=== PATIENT | female | born 1975 | race Asian ===

== ENCOUNTER → 2016-10-28 | Outpatient (CLI) | payer BC ==
[~2016-10-28] MED LIST: ETONMIS VAGRING
[2016-10-28 09:49] LABS: BLOOD UREA NITROGEN 19 mg/dl (7-18); BUN/CREATININE RATIO 18.8 (10-20); CALCIUM 9.4 mg/dl (8.5-10.1); CARBON DIOXIDE 25 mmol/L (21-32); CHLORIDE 105 mmol/L (98-107); GLUCOSE 89 mg/dl (70-99); MAGNESIUM 2.1 mg/dl (1.8-2.4); POTASSIUM 3.8 mmol/L (3.5-5.1); SODIUM 138 mmol/L (136-145); TRIGLYCERIDES 98 mg/dl (0-150)
== END | disposition home or self-care (01) ==
LOC: C.LAB1850 07:39
PROVIDERS: ATTEND Internal Medicine
DX: E78.2 Mixed hyperlipidemia (principal); R25.2 Cramp and spasm

== ENCOUNTER 2016-12-08 13:14 | Inpatient (IN) | payer BC ==
[~2016-12-08] VITALS: Ht 162.6 cm; Wt 56.1 kg
[~2016-12-08 13:14] MED LIST changes: -OPTIRAY 320 IV PRN; -XRL15 PO
--- NOTE | 2016-12-08 14:04 | EMERGENCY ROOM VISIT NOTE ---
History Report prepared by Sobia: [facility] Under the Supervision of: Dr. Bobo Perez M.D. First contact with patient: 13:25 Chief Complaint: RESPIRATORY PROBLEMS Stated Complaint: PULMONARY EMBOLISM History of Present Illness The patient is a 41 year old female who presents to the Emergency Room with complaints of constant chest tightness starting this morning around 0200 this morning. She states that she woke with a sharp pain on the right side worsened with breathing, and now it is just a tightness. She states that this morning it was better, though she went to get a CT scan this morning, and she was diagnosed with a PE. She states that she has no other medical problems, and she has no history of blood clots. She denies any abdominal pain, back pain, pain in her calves, recent long travels, and she is not a smoker. The patient states that she ran a marathon three weeks ago, and her running has been very difficult for the past two days. She states that she is on Nuva Ring. The patient denies any trauma or bleeding elsewhere. She states that she does travel for work a lot, and she is adopted, so she is unsure of her family history. Source of History: patient Onset: 0200 Position: chest Quality: other (tightness) Timing: constant Modifying Factors (Worsening): breathing Associated Symptoms: No abdominal pain, No back pain Review of Systems See HPI for pertinent positives & negatives. A total of 10 systems reviewed and were otherwise negative. Past Medical & Surgical Medical Problems: (1) Acute pulmonary embolism Old medical records were reviewed. Nurse's notes were reviewed and I agree with. Social History Smoking Status: Never Smoker Drug Use: none Marital Status: Housing Status: lives with family Occupation Status: employed Current/Historical Medications Scheduled Etonogestrel/Ethinyl Estradiol (Nuvaring), 1 EA VAGRING MONTHLY Allergies Coded Allergies: Penicillins (Unverified Allergy, Mild, 12/08/16) Amoxicillin (Unverified Allergy, Unknown, ., 12/08/16) Sulfa Drugs (Verified Allergy, Unknown, /, 12/08/16) Physical Exam Vital Signs Date Time Temp Pulse Resp B/P (MAP) Pulse Ox O2 Delivery O2 Flow Rate FiO2 12/08/16 14:01 100 Room Air 12/08/16 13:20 36.6 104 148/84 96 Room Air Physical Exam General: Non-ill appearing young female in no acute distress. HEENT: Normal cephalic atraumatic. Pupils are equal round and reactive to light. Extraocular movements are intact. Oropharynx is pink with moist mucous membranes. No swelling of the mouth lips or tongue. Neck: Supple with a midline trachea. No meningeal signs or stiffness, no JVD or bruits. No Stridor. Chest: Clear to auscultation bilaterally. No wheezes or rhonchi. No increased work of breathing. Heart: regular rate and rhythm. Abdomen: Soft nontender, nondistended without rebound guarding or rigidity. Extremities: No cyanosis clubbing or edema. No calf tenderness or assymetry Spine/Back. Non tender to palpation. No CVA tenderness Skin: Good turgor without rashes. Neurologic exam: Cranial nerves two through 12 are intact. Motor and sensation are intact and symmetrical throughout. Medical Decision & Procedures ER Provider Diagnostic Interpretation: Radiology results as stated below per my review and radiologist interpretation: CT ANGIOGRAM OF THE CHEST CLINICAL HISTORY: Dyspnea. Atypical chest pain. COMPARISON STUDY: No priors. TECHNIQUE: Following the IV administration of 104 cc of Optiray 320, CT angiogram of the chest was performed from the upper abdomen to the thoracic inlet utilizing the pulmonary embolus protocol. Images are reviewed in the axial, sagittal, and coronal planes. 3-D MIPS images are created and assessed. IV contrast was administered without complication. A dose lowering technique was utilized adhering to the principles of ALARA. CT DOSE: 298.83 mGycm FINDINGS: Thyroid: Imaged portions of the thyroid gland are normal in size and attenuation. Thoracic aorta: The thoracic aorta is normal in caliber and demonstrates standard 3-vessel arch anatomy. No dissection is seen. Pulmonary vasculature: The pulmonary trunk is normal in caliber. There are numerous segmental and subsegmental pulmonary emboli present within branches of the right lower lobe pulmonary artery. Subsegmental pulmonary emboli are seen within branches of the left lower lobe pulmonary artery. Heart: The heart is normal in size and configuration, and without pericardial effusion. Lungs and pleural spaces: There is a trace right pleural effusion. There are dependent patchy airspace opacities present at both lung bases, right greater than left. The upper lobes are clear. The trachea and central airways are patent. Mediastinum: There is no mediastinal lymphadenopathy. Adilene: Clear. Axillae: There is no axillary lymphadenopathy. Upper abdomen: A 3 cm bilobed cyst is present in the right lobe of the liver. Partially visualized upper abdominal viscera is otherwise within normal limits. Skeletal structures: No lytic or blastic bony lesions are seen. IMPRESSION: 1. There are segmental and subsegmental pulmonary emboli within branches of the right lower lobe pulmonary artery. 2. Subsegmental pulmonary emboli are present within branches of the left lower lobe pulmonary artery. 3. There is a trace right pleural effusion. 4. Dependent airspace opacities are present at both lung bases, right greater than left. Given the presence of pulmonary embolus this likely represents developing pulmonary infarct. An infectious/inflammatory pneumonitis is considered less likely but is the top differential consideration. Electronically signed by: Samson Condon M.D. 12/08/2016 12:52 PM Dictated Date/Time: 12/08/2016 12:46 PM Laboratory Results Test 12/08/16 13:35 12/08/16 14:07 Prothrombin Time 9.4 SECONDS (9.0-12.0) Prothromb Time International Ratio 0.9 (0.9-1.1) Activated Partial Thromboplast Time 29.9 SECONDS (21.0-31.0) Partial Thromboplastin Ratio 1.2 Human Chorionic Gonadotropin, Qual NEG (NEG) Bedside Troponin I < 0.030 ng/ml (0-0.045) Laboratory studies as stated above per my review. ECG Indication: chest pain Rate (beats per minute): 67 Rhythm: normal sinus Findings: RBBB (incomplete), no acute ischemic change Comparison ECG Date: 05/11/09 Change: no significant change Change: EKG compared to the one during the office: Julianna sinus rhythm at 60bpm. Short [place] intervals. No ischemia. No significant change from the office prior to arrival. ED Course 1325: Past medical records reviewed. The patient was evaluated in room C1, and a complete history and physical examination were performed. 1337: Discussed the patient's case with Dr. Atilio SOLOMON. The patient will be evaluated for further management. 1339: Heparin Sodium/ Dextrose 1ea IV Medical Decision Differentials include, but are not limited to; PE, pulmonary infarct, infection , arrhythmia This patient comes in as described above. She was placed in room C1. She is here for treatment and evaluation of right-sided chest pain. She seen her primary doctor's office. SSvika was sent over and had an outpatient CAT scan which showed bilateral PEs. Upon arrival in the emergency department s,, so I he was placed as a priority patient says saw her quickly. When I went in the room, she has stable vital signs and she's not hypoxemic and looks well. She seems to be tolerating this well so far. I did review the EKGs from the office and she has no ischemic change and we repeated an EKG here which was unremarkable as well. Blood work was obtained and reviewed the blood work from the office as well. I do think she needs to be admitted for anticoagulation and anticoagulation/PE workup. I have consulted Dr. Trimble, who the would like the IV heparin standard bolus and protocol which I did order and at this was started in the emergency department. The patient will be admitted for further treatment and evaluation of her pulmonary embolisms Medication Reconcilliation Current Medication List: was personally reviewed by me Blood Pressure Screening Patient's blood pressure: Elevated blood pressure Monitored by the hospitalist Consults Time Called: [phone] Consulting Physician: NEHA Perez Returned Call: [phone] Discussed the patient's case with NEHA Bajwa. The patient will be evaluated for further management. Impression Primary Impression: Pulmonary embolism Additional Impression: Right-sided chest pain Scribe Attestation The scribe's documentation has been prepared under my direction and personally reviewed by me in its entirety. I confirm that the note above accurately reflects all work, treatment, procedures, and medical decision making performed by me. Departure Information Dispostion Being Evaluated By Hospitalist Referrals No Doctor, Assigned (PCP) Patient Instructions My [facility] Problem Qualifiers
[2016-12-08 14:18] LABS: INR 0.9 (0.9-1.1); PARTIAL THROMBOPLASTIN RATIO 1.2; PROTHROMBIN TIME (PATIENT) 9.4 SECONDS (9.0-12.0)
[2016-12-08 14:29] LABS: PREG INTERNAL NEGATIVE QC NEG CLEAR BACKGROUND; PREG INTERNAL POSITIVE QC POS CONTROL LINE
[2016-12-08] MEDS ORDERED: ACETAMINOPHEN 325 MG TAB PO PRN (14:30)
[2016-12-08] MEDS ORDERED: MoRPHine SULFATE 2 MG/ML CARP IV PRN (14:30)
[2016-12-08] MEDS ORDERED: ZOLPIDEM TARTRATE 5 MG TAB PO PRN (14:30)
[2016-12-08] MEDS ORDERED: POLYETHYLENE (MIRALAX) 17 GM PACK PO PRN (14:30)
[2016-12-08] MEDS ORDERED: HEPARIN IV BOLUS 4,000 UNIT in SYRINGE 0 ML IV ONE (14:45)
--- NOTE | 2016-12-08 15:10 | History and Physical ---
History & Physical Date & Time of Service: Dec 08, 2016 at 14:41 Chief Complaint: Pulmonary Embolism Primary Care Physician: Martín Allen M.D. History of Present Illness Source: patient, clinic records, hospital records This patient is a 41-year-old female with no significant past medical history who presented to her PCPs office today with sudden onset of right-sided chest pain of a pleuritic nature with some shortness of breath that started abruptly at 2:30 this morning at home. She was sent for a CT angiogram of the chest after having an evaluation and an EKG in the office. Her CT angiogram of the chest showed multiple bilateral pulmonary emboli and she was referred to the emergency room. The patient reports she has been on NuvaRing for control for over 10 years, and frequently travels by airplane for work, most recently was in [place] last week. 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 She denies any preceding calf, leg, or groin pain, no abdominal pain, no leg swelling, no previous chest pain. She has no history of venous thromboembolism , and she has never been . She is adopted and is not aware of any of her family history. She does have a history of abnormal Pap smear with LGSIL which has since resolved on subsequent Pap smears. She has never had a mammogram and denies any breast masses. She denies any recent surgeries or procedures. She has no history of intracranial hemorrhage, GI bleeding, or bleeding of any sort. She denies any recent fevers, no weight loss, no swollen lymph nodes, no fatigue. She will be admitted for bilateral pulmonary emboli with possible developing pulmonary infarct in the right lower lobe. 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) Multi-Drug Resistant Organisms History of MDRO: No Allergies Coded Allergies: Penicillins (Unverified Allergy, Mild, 12/08/16) Amoxicillin (Unverified Allergy, Unknown, ., 12/08/16) Sulfa Drugs (Verified Allergy, Unknown, /, 12/08/16) Home Medications Scheduled Etonogestrel/Ethinyl Estradiol (Nuvaring), 1 EA VAGRING MONTHLY Review of Systems Constitutional: No fever, No chills, No sweats, No weight loss Eyes: No problem reported ENT: No problem reported Respiratory: + shortness of breath Cardiovascular: + chest pain (pleuritic), No edema Abdomen: No pain, No nausea, No vomiting, No GI bleeding Musculoskeletal: No joint pain, No muscle pain, No swelling, No calf pain Genitourinary - Female: No , No problem reported Neurologic: No problem reported Psychiatric: No problem reported Endocrine: No problem reported Hematologic / Lymphatic: No abnormal bleeding/bruising, No clotting problems, No swollen lymph nodes, No night sweats Integumentary: No rash, No new/changing skin lesions, No bleeding Allergic / Immunologic: No problem reported Physical Exam Vital Signs Date Time Temp Pulse Resp B/P (MAP) Pulse Ox O2 Delivery O2 Flow Rate FiO2 12/08/16 14:01 100 Room Air 12/08/16 13:20 36.6 104 148/84 96 Room Air General Appearance: WD/WN, no apparent distress, + thin Head: normocephalic, atraumatic Eyes: normal inspection, PERRL, EOMI, sclerae normal ENT: hearing grossly normal, pharynx normal Neck: supple, no adenopathy, thyroid normal, no JVD, trachea midline Respiratory/Chest: lungs clear, normal breath sounds, no respiratory distress, no accessory muscle use Cardiovascular: regular rate, rhythm, no edema, no gallop, no murmur, normal peripheral pulses (including 2+ femoral pulses, 2+ dorsalis pedis pulses bilaterally) Abdomen/GI: normal bowel sounds, non tender, soft, no organomegaly, no pulsatile mass Back: normal inspection Extremities/Musculoskelatal: normal inspection, no calf tenderness, normal capillary refill, no pedal edema, normal range of motion Neurologic/Psych: no motor/sensory deficits, alert, normal mood/affect, oriented x 3 Skin: normal color, warm/dry, no rash Lymphatic: no adenopathy (no cervical, axillary, inguinal lymphadenopathy) Diagnostics Laboratory Results Results Past 24 Hours Test 12/08/16 13:35 12/08/16 14:07 12/08/16 14:12 Range/Units Prothrombin Time 9.4 9.0-12.0 SECONDS Prothromb Time International Ratio 0.9 0.9-1.1 Activated Partial Thromboplast Time 29.9 21.0-31.0 SECONDS Partial Thromboplastin Ratio 1.2 Human Chorionic Gonadotropin, Qual NEG NEG Bedside Troponin I < 0.030 0-0.045 ng/ml Diagnostic Radiology CT angiogram of the chest reviewed: 1. There are segmental and subsegmental pulmonary emboli within branches of the right lower lobe pulmonary artery. 2. Subsegmental pulmonary emboli are present within branches of the left lower lobe pulmonary artery. 3. There is a trace right pleural effusion. 4. Dependent airspace opacities are present at both lung bases, right greater than left. Given the presence of pulmonary embolus this likely represents developing pulmonary infarct. An infectious/inflammatory pneumonitis is considered less likely but is the top differential consideration. EKG EKG from the office reviewed and shows an incomplete right bundle branch block, no ischemic changes No change from prior EKG (from 2009) Impression Assessment and Plan This patient is a 41-year-old female with no significant past medical history who presented to her PCPs office today with sudden onset of right-sided chest pain of a pleuritic nature with some shortness of breath that started abruptly at 2:30 this morning at home. She was sent for a CT angiogram of the chest after having an evaluation and an EKG in the office. Her CT angiogram of the chest showed multiple bilateral pulmonary emboli and she was referred to the emergency room. The patient reports she has been on NuvaRing for control for over 10 years, and frequently travels by airplane for work, most recently was in [place] last week. 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 She denies any preceding calf, leg, or groin pain, no abdominal pain, no leg swelling, no previous chest pain. She has no history of venous thromboembolism , and she has never been . She is adopted and is not aware of any of her family history. She does have a history of abnormal Pap smear with LGSIL which has since resolved on subsequent Pap smears. She has never had a mammogram and denies any breast masses. She denies any recent surgeries or procedures. She has no history of intracranial hemorrhage, GI bleeding, or bleeding of any sort. She denies any recent fevers, no weight loss, no swollen lymph nodes, no fatigue. She will be admitted for bilateral pulmonary emboli with possible developing pulmonary infarct in the right lower lobe. Acute bilateral pulmonary emboli/developing pulmonary infarct-could be considered provoked by use of hormonal contraception plus recent and frequent travel. However, she is quite active as a marathon runner. No family history is known to see if she is at risk for hypercoagulable disorder. No obvious signs of underlying malignancy. She is hemodynamically stable, she is not significantly hypoxic, there is no indication for evaluation for thrombolytic therapy. -Admit to telemetry -Check echocardiogram -I believe this warrants a hypercoagulable workup and those labs were drawn today prior to initiation of her heparin drip-these studies will need follow-up as an outpatient -May need outpatient workup for underlying malignancy as a cause as well-would need a mammogram, clinical breast exam, and possible pelvic ultrasound to look at the ovaries -Start heparin drip now and continue until long-term anticoagulation commences- patient is interested in NOAC like Xarelto-we'll have case management yu it out for her -She will need likely 6 months of anticoagulation -I advised the patient to pull out her NuvaRing and permanently discontinue it -Check Dopplers of the bilateral lower extremities Hypertriglyceridemia-most recent lipid panel was excellent -Continue omega-3 supplementation Prophylaxis-heparin drip Disposition-to home in 1-2 days Full code Level of Care Telemetry Resuscitation Status FULL RESUSCITATION VTE Prophylaxis VTE Risk Assessment Done? Y/N: Yes Risk Level: High Given or contraindicated: Unfractionated heparin SQ Additional Copies To Martín Allen M.D.
[2016-12-08 16:45] VITALS: BP 118/76; PULSE 75; TEMP 36.8; O2SAT 98
[2016-12-08 17:20] VITALS: BP 118/76; PULSE 75; TEMP 36.8; O2SAT 98; Ht 162.6 cm; Wt 56.1 kg
[2016-12-08] MEDS: HEPARIN 25,000 UNIT/500ML D5W 500 ML IV PRN ×2 (17:22→23:57)
[2016-12-08 17:49] LABS: BASO % 0.2 %; BASO ABS # 0.02 K/uL (0-0.2); EOS % 0.9 %; HEMATOCRIT 39.9 % (37-47); IG% 0.2 %; LYMPH % 22.7 %; LYMPH ABS # 2.06 K/uL (1.2-3.4); MEAN CELL VOLUME 93.2 fL (80-100); MEAN PLATELET VOLUME 9.3 fL (7.4-10.4); MONO % 8.1 %; NEUT % 67.9 %; PLATELET COUNT 183 K/uL (130-400); RED BLOOD COUNT 4.28 M/uL (4.2-5.4); WHITE BLOOD COUNT 9.09 K/uL (4.8-10.8)
[2016-12-08 17:51] LABS: COMPLETE YES; MEAN CORPUSCULAR HGB CONC 34.3 g/dl (32-36)
[2016-12-08 19:20] VITALS: BP 119/77; PULSE 94; TEMP 36.9; O2SAT 92
[2016-12-08 20:00] VITALS: O2SAT 92
[2016-12-08 23:16] VITALS: BP 116/72; PULSE 78; TEMP 37; O2SAT 98
[2016-12-08 23:48] LABS: PARTIAL THROMBOPLASTIN RATIO 2.4
[2016-12-09] VITALS: O2SAT 92
[2016-12-09 04:00] VITALS: O2SAT 92
[2016-12-09 04:31] VITALS: BP 107/70; PULSE 72; TEMP 37.1; O2SAT 97
[2016-12-09 05:49] LABS: BASO % 0.4 %; BASO ABS # 0.03 K/uL (0-0.2); COMPLETE YES; EOS % 2.4 %; HEMATOCRIT 36.3 % (37-47); IG% 0.3 %; LYMPH % 33.4 %; LYMPH ABS # 2.66 K/uL (1.2-3.4); MEAN CELL VOLUME 93.3 fL (80-100); MEAN CORPUSCULAR HEMOGLOBIN 31.6 pg (25-34); MEAN CORPUSCULAR HGB CONC 33.9 g/dl (32-36); MEAN PLATELET VOLUME 9.3 fL (7.4-10.4); MONO % 9.3 %; NEUT % 54.2 %; PLATELET COUNT 189 K/uL (130-400); RED BLOOD COUNT 3.89 M/uL (4.2-5.4); WHITE BLOOD COUNT 7.97 K/uL (4.8-10.8)
[2016-12-09 06:09] LABS: PARTIAL THROMBOPLASTIN RATIO 2.9
[2016-12-09 06:25] LABS: BUN/CREATININE RATIO 16.8 (10-20); CALCIUM 8.5 mg/dl (8.5-10.1); CREATININE 0.73 mg/dl (0.60-1.20); MAGNESIUM 2.1 mg/dl (1.8-2.4); POTASSIUM 3.9 mmol/L (3.5-5.1)
[2016-12-09] MEDS: HEPARIN 25,000 UNIT/500ML D5W 500 ML IV PRN (06:26)
--- NOTE | 2016-12-09 07:00 | DIAGNOSTIC IMAGING REPORT ---
BILATERAL LOWER EXTREMITY VENOUS DOPPLER HISTORY: Pulmonary embolus with concern for deep venous thrombosis look for DVT, has bilateral PEs COMPARISON STUDY: CTA of same day. FINDINGS: There is normal compressibility, flow, and augmentation within the bilateral lower extremity deep venous systems. IMPRESSION: No sonographic evidence of deep venous thrombosis within the right or left lower extremity. Electronically signed by: Abiel Antunez M.D. 12/09/2016 6:59 AM Dictated Date/Time: 12/09/2016 6:56 AM
[2016-12-09 07:32] VITALS: BP 116/74; PULSE 90; TEMP 37.1; O2SAT 100
--- NOTE | 2016-12-09 09:00 | ECHOCARDIOGRAM REPORT ---
*NOTICE TO RECEIVING REPUBLICAN AGENCY This information is strictly Confidential and protected under [place] law. [place] law prohibits you from making any further disclosure of this information unless further disclosure is expressly permitted by the written consent of the person to whom it pertains or is authorized by law. A general authorization for the release of medical or other information is not sufficient for this purpose. Hospital accepts no responsibility if the information is made available to any other person, INCLUDING THE PATIENT. Interpretation Summary * Name: GENE ASHLEY Study Date: 12/09/2016 06:46 AM BP: 116/74 mmHg * Patient Location: [facility]\S\N288\S\2 HR: 72 * : 1975 (M/d/yyyy) Gender: Female Height: 64 in * Age: 41 yrs Ethnicity: Weight: 123 lb * Ordering Physician: Jess Trimble * Referring Physician: Martín Allen * Performed By: Karen Rivera RCS * * Reason For Study: B/L PE * BSA: 1.6 m2 * -- Conclusions -- * Left ventricular systolic function is normal. * The right atrium is mildly dilated. * There is mild mitral regurgitation. * Right ventricular systolic pressure is elevated at 30-40mmHg. Procedure Details * A complete two-dimensional transthoracic echocardiogram was performed (2D, M-mode, Doppler and color flow Doppler). Left Ventricle * The left ventricle is normal in size. * There is normal left ventricular wall thickness. * Left ventricular systolic function is normal. * Ejection Fraction = 55-60%. * Normal diastolic function * The left ventricular wall motion is normal. Right Ventricle * The right ventricle is normal size. * The right ventricular systolic function is normal. Atria * The left atrial size is normal. * The right atrium is mildly dilated. Mitral Valve * The mitral valve anatomy is normal. * There is mild mitral regurgitation. * The mitral regurgitant jet is posteriorly directed, which is consistent with anterior leaflet pathology. Tricuspid Valve * The tricuspid valve is not well visualized, but is grossly normal. * There is trace tricuspid regurgitation. * Right ventricular systolic pressure is elevated at 30-40mmHg. Aortic Valve * The aortic valve is normal in structure and function. * The aortic valve is trileaflet. * No hemodynamically significant valvular aortic stenosis. * No aortic regurgitation is present. Great Vessels * The aortic root is normal size. Pericardium/Pleural * There is no pericardial effusion. MMode 2D Measurements and Calculations IVSd 1.0 cm IVSs 1.3 cm LVIDd 4.1 cm LVIDs 3.4 cm LVPWd 0.98 cm LVPWs 1.2 cm IVS/LVPW 1.0 FS 16.7 % EDV(Teich) 74.6 ml ESV(Teich) 48.2 ml EF(Teich) 35.4 % EDV(cubed) 69.4 ml ESV(cubed) 40.1 ml EF(cubed) 42.2 % % IVS thick 25.9 % % LVPW thick 21.5 % LV mass(C)d 131.0 grams LV mass(C)dI 82.4 grams/m\S\2 LV mass(C)s 136.2 grams LV mass(C)sI 85.6 grams/m\S\2 SV(Teich) 26.4 ml SI(Teich) 16.6 ml/m\S\2 SV(cubed) 29.3 ml SI(cubed) 18.4 ml/m\S\2 Ao root diam 2.8 cm Ao root area 6.1 cm\S\2 LA dimension 2.7 cm LA/Ao 0.99 LVOT diam 1.8 cm LVOT area 2.6 cm\S\2 LVAd ap4 25.2 cm\S\2 LVLd ap4 7.9 cm EDV(MOD-sp4) 65.4 ml EDV(sp4-el) 67.8 ml LVAs ap4 17.4 cm\S\2 LVLs ap4 7.1 cm ESV(MOD-sp4) 36.0 ml ESV(sp4-el) 36.3 ml EF(MOD-sp4) 45.0 % EF(sp4-el) 46.4 % LVAd ap2 21.6 cm\S\2 LVLd ap2 7.2 cm EDV(MOD-sp2) 53.2 ml EDV(sp2-el) 55.5 ml LVAs ap2 14.9 cm\S\2 LVLs ap2 6.6 cm ESV(MOD-sp2) 28.0 ml ESV(sp2-el) 28.4 ml EF(MOD-sp2) 47.4 % EF(sp2-el) 48.8 % LVLd %diff -10.68 % EDV(MOD-bp) 61.8 ml LVLs %diff -7.27 % ESV(MOD-bp) 32.6 ml EF(MOD-bp) 47.2 % SV(MOD-sp4) 29.4 ml SI(MOD-sp4) 18.5 ml/m\S\2 SV(MOD-sp2) 25.2 ml SI(MOD-sp2) 15.8 ml/m\S\2 SV(MOD-bp) 29.2 ml SI(MOD-bp) 18.4 ml/m\S\2 SV(sp4-el) 31.4 ml SI(sp4-el) 19.8 ml/m\S\2 SV(sp2-el) 27.1 ml SI(sp2-el) 17.0 ml/m\S\2 Doppler Measurements and Calculations MV E max anthony 94.4 cm/sec MV A max anthony 55.0 cm/sec MV E/A 1.7 MV P1/2t max anthony 115.6 cm/sec MV P1/2t 58.3 msec MVA(P1/2t) 3.8 cm\S\2 MV dec slope 580.7 cm/sec\S\2 MV dec time 0.19 sec Ao V2 max 122.8 cm/sec Ao max PG 6.0 mmHg Ao max PG (full) 1.3 mmHg JOSE(V,A) 2.3 cm\S\2 JOSE(V,D) 2.3 cm\S\2 LV V1 max PG 4.7 mmHg LV V1 max 108.9 cm/sec MR max anthony 520.6 cm/sec MR max PG 109.0 mmHg PA V2 max 87.1 cm/sec PA max PG 3.0 mmHg TR max anthony 275.6 cm/sec
[2016-12-09 11:17] VITALS: BP 109/72; PULSE 86; TEMP 36.6; O2SAT 100
[2016-12-09] MEDS ORDERED: XRL15 PO (12:11)
[2016-12-09] MEDS ORDERED: RIVAROXABAN 20 MG TAB PO SCH (12:15)
--- NOTE | 2016-12-09 12:21 | Discharge Instructions ---
Discharge Instructions Date of Service Dec 09, 2016. Admission Reason for Admission: Acute Pulmonary Embolism Discharge Discharge Diagnosis / Problem: Acute pulmonary embolism Discharge Goals Goal(s): Decrease discomfort, Improve function, Increase independence, Improve disease control Activity Recommendations Activity Limitations: resume your previous activity Lifting Limitations: none Exercise/Sports Limitations: none May Resume Sexual Activity: when tolerated (use a nonhormal control method such as condoms until seen by your PCP to discuss other options.) Shower/Bathe: no limitations Driving or Machine Use: no limitations . Instructions / Follow-Up Instructions / Follow-Up You were admitted to [facility] with decreased exercise intolerance, pleuritic chest pain and diagnosed with an acute pulmonary embolism, ie. blood clot in the lung vasculature. During your stay here you were treated with blood thinning agent called heparin. Imaging studies which were completed include Echocardiogram (ultrasound of the heart), and were abnormal showing some elevated pulmonary pressure which is related to the blood clot. This can be rechecked as an outpatient in 6 months by your Primary care provider(PCP). Medications: You were started on a medication called Xarelto Continue taking Xarelto 15 mg twice daily x 21 days After this initial dosing you will switch to 20 mg daily. Total time of anticoagulation should be for 6 months unless otherwise determined by your PCP. Do not use Nuva-ring any more - please use other non-hormonal contraceptive until follow up with your PCP. Appointments: Follow up with your Primary Care Provider within 1 week: Dr. Allen on Dec.14 at 9 :30 am Current Hospital Diet Patient's current hospital diet: Regular Diet Discharge Diet Recommended Diet: Regular Diet Pending Studies Studies pending at discharge: yes List of pending studies: Coagulation workup - follow with PCP Laboratory Results Lipid Panel Test 10/05/16 07:26 10/28/16 07:43 Range/Units Triglycerides Level 154 H 98 0-150 mg/dl Cholesterol Level 254 H 0-200 mg/dl HDL Cholesterol 110 mg/dl Cholesterol/HDL Ratio 2.3 LDL Cholesterol, Calculated 113 mg/dl Medical Emergencies . Who to Call and When: Medical Emergencies: If at any time you feel your situation is an emergency, please call 911 immediately. . Non-Emergent Contact Non-Emergency issues call your: Primary Care Provider Call Non-Emergent contact if: you have a fever, temperature is above 100.5, your pain is not controlled, your pain is worsening, your pain is unusual for you, your pain is concerning you, you have any medication questions . . "Provider Documentation" section prepared by Kelsey Talley. . VTE Core Measure Inpt VTE Proph given/why not?: Other Anticoagulation (xarelto), T.E.D. Stockings, SCD's
--- NOTE | 2016-12-09 12:46 | Discharge Summary ---
Discharge Summary Date of Service Dec 09, 2016. (Gracia Talley PA-C) Discharge Summary Admission Date: Dec 08, 2016 at 14:22 Discharge Date: Dec 09, 2016 Discharge Disposition: Home Principal Diagnosis: Acute PE Procedures: BILATERAL LOWER EXTREMITY VENOUS DOPPLER 12/08/16 IMPRESSION: No sonographic evidence of deep venous thrombosis within the right or left lower extremity. CT ANGIOGRAM OF THE CHEST 12/08/16 IMPRESSION: 1. There are segmental and subsegmental pulmonary emboli within branches of the right lower lobe pulmonary artery. 2. Subsegmental pulmonary emboli are present within branches of the left lower lobe pulmonary artery. 3. There is a trace right pleural effusion. 4. Dependent airspace opacities are present at both lung bases, right greater than left. Given the presence of pulmonary embolus this likely represents developing pulmonary infarct. An infectious/inflammatory pneumonitis is considered less likely but is the top differential consideration. (Gracia Talley PA-C) Medication Reconciliation New Medications: Rivaroxaban (Xarelto) 15 Mg Tab 15 MG PO BID for 21 Days, #42 TAB Discontinued Medications: Etonogestrel/Ethinyl Estradiol (Nuvaring) 1 Ea Vagring 1 EA VAGRING MONTHLY Discharge Exam The patient was seen and examined this morning. Pt reports doing well, she denies any shortness of breath currently, and has been ambulating to the bathroom without difficulty. She still has some pleuritic chest pain with deep breaths. Discussion regarding initiation of xarelto was held including the risks and benefits and all her questions were answered. Pt was encouraged to use nonhormonal control, and discontinue the nuva-ring. She is in agreement with this. Pt will plan to follow with her PCP within 1 week and discuss other alternatives after discussing with her significant other, in the meantime was encouraged to use condoms. ROS: 6 point ROS reviewed and negative. Physical Exam: General Appearance: WD/WN, no apparent distress, + thin Eyes: PERRL, EOMI ENT: hearing grossly normal, pharynx normal Neck: supple, no JVD Respiratory/Chest: chest non-tender, lungs clear, no respiratory distress, no accessory muscle use Cardiovascular: regular rate, rhythm, no murmur Abdomen / GI: normal bowel sounds, non tender, soft Extremities: normal inspection, no calf tenderness, no pedal edema Neurologic/Psychiatric: alert, normal mood/affect, normal reflexes, oriented x 3 Skin: normal color, warm/dry (Gracia Talley, MARIBELL) Hospital Course H&P per Jess Trimble MD. History of Present Illness Source: patient, clinic records, hospital records This patient is a 41-year-old female with no significant past medical history who presented to her PCPs office today with sudden onset of right-sided chest pain of a pleuritic nature with some shortness of breath that started abruptly at 2:30 this morning at home. She was sent for a CT angiogram of the chest after having an evaluation and an EKG in the office. Her CT angiogram of the chest showed multiple bilateral pulmonary emboli and she was referred to the emergency room. The patient reports she has been on NuvaRing for control for over 10 years, and frequently travels by airplane for work, most recently was in [place] last week. 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 She denies any preceding calf, leg, or groin pain, no abdominal pain, no leg swelling, no previous chest pain. She has no history of venous thromboembolism , and she has never been . She is adopted and is not aware of any of her family history. She does have a history of abnormal Pap smear with LGSIL which has since resolved on subsequent Pap smears. She has never had a mammogram and denies any breast masses. She denies any recent surgeries or procedures. She has no history of intracranial hemorrhage, GI bleeding, or bleeding of any sort. She denies any recent fevers, no weight loss, no swollen lymph nodes, no fatigue. She will be admitted for bilateral pulmonary emboli with possible developing pulmonary infarct in the right lower lobe. Physical Exam Vital Signs Date Time Temp Pulse Resp B/P (MAP) Pulse Ox O2 Delivery O2 Flow Rate FiO2 12/08/16 14:01 100 Room Air 12/08/16 13:20 36.6 104 148/84 96 Room Air General Appearance: WD/WN, no apparent distress, + thin Head: normocephalic, atraumatic Eyes: normal inspection, PERRL, EOMI, sclerae normal ENT: hearing grossly normal, pharynx normal Neck: supple, no adenopathy, thyroid normal, no JVD, trachea midline Respiratory/Chest: lungs clear, normal breath sounds, no respiratory distress, no accessory muscle use Cardiovascular: regular rate, rhythm, no edema, no gallop, no murmur, normal peripheral pulses (including 2+ femoral pulses, 2+ dorsalis pedis pulses bilaterally) Abdomen/GI: normal bowel sounds, non tender, soft, no organomegaly, no pulsatile mass Back: normal inspection Extremities/Musculoskelatal: normal inspection, no calf tenderness, normal capillary refill, no pedal edema, normal range of motion Neurologic/Psych: no motor/sensory deficits, alert, normal mood/affect, oriented x 3 Skin: normal color, warm/dry, no rash Lymphatic: no adenopathy (no cervical, axillary, inguinal lymphadenopathy) Hospital Course: Acute bilateral pulmonary emboli/developing pulmonary infarct-could be considered provoked by use of hormonal contraception plus recent and frequent travel. However, she is quite active as a marathon runner. No family history is known to see if she is at risk for hypercoagulable disorder. No obvious signs of underlying malignancy. She is hemodynamically stable, she is not significantly hypoxic, there is no indication for evaluation for thrombolytic therapy. -Check echocardiogram: * -- Conclusions -- * Left ventricular systolic function is normal. * The right atrium is mildly dilated. * There is mild mitral regurgitation. * Right ventricular systolic pressure is elevated at 30-40mmHg. -hypercoagulable workup labs drawn 12/08 prior to initiation of her heparin drip-these studies will need follow-up as an outpatient - Pt completed monthly self breast exams. Has never had mammography so was encouraged to discuss with her PCP. - Was on heparin drip gtt during stay and started on xarelto 15 mg BID x 21 days today. And then can switch to 20 mg daily for total of 6 months. - I advised the patient to pull out her NuvaRing and permanently discontinue it - use nonhormonal contaception until discussed with pharmacy - Dopplers of the bilateral lower extremities - negative Hypertriglyceridemia-most recent lipid panel was excellent -Continue omega-3 supplementation Prophylaxis-heparin drip transitioned to xarelto Disposition-to home today Full code Total Time Spent: Greater than 30 minutes This includes examination of the patient, discharge planning, medication reconciliation, and communication with other providers. (Gracia Talley, MARIBELL) I examined patient and discussed my analysis and discharge plan with patient and APC. I agree with above note. My exam did not differ from the exam noted above. I answered all questions from patient. (Ralph Wilkinson M.D.) Discharge Instructions Please refer to the electronic Patient Visit Report (Discharge Instructions) for additional information. (Gracia Talley, MARIBELL) Follow-Up Follow up with your Primary Care Provider within [address] Pro Vazquez 1 at 9:30 am (Gracia Talley, MARIBELL)
[2016-12-09] MEDS ORDERED: RIVAROXABAN TAB 15 MG TAB PO ONE (13:00)
[2016-12-09] MEDS ORDERED: NURSING VERBAL MED ORDER ONE (13:15)
[2016-12-09 13:21] VITALS: BP 109/72; PULSE 86; TEMP 36.6; O2SAT 100
[2016-12-14 10:31] LABS: ANTITHROMBINIII ACTIVITY** 104 % activity (80-120); B2 GLYCOPROTEIN IGA 102 SAU (<=20); B2 GLYCOPROTEIN IGG <9 SGU (<=20); B2 GLYCOPROTEIN IGM <9 SMU (<=20); LUPUS ANTICOAGULANT** TC36573X Negative (Negative); PROTEIN C ACTIVITY** TC 1777X 43 % (70-180); PROTEIN S ACT(FUNCT)**1779X 72 % (60-140)
== END 2016-12-09 13:40 | disposition home or self-care (01) | DRG 176 ==
LOC: C.EDB 13:16 → C.MED 14:22 → ENRESERV 15:57
PROVIDERS: ADMIT Family Medicine; ATTEND Family Medicine
DX: I26.99 Other pulmonary embolism without acute cor pulmonale (principal); E78.1 Pure hyperglyceridemia; Z79.3 Long term (current) use of hormonal contraceptives; Z88.0 Allergy status to penicillin; Z88.2 Allergy status to sulfonamides; R07.89 Other chest pain; R06.02 Shortness of breath; J90 Pleural effusion, not elsewhere classified; R91.8 Other nonspecific abnormal finding of lung field; Z30.9 Encounter for contraceptive management, unspecified; Z78.9 Other specified health status

== ENCOUNTER → 2016-12-08 | Outpatient (CLI) | payer BC ==
[~2016-12-08] MED LIST changes: +OPTIRAY 320 IV PRN; +XRL15 PO
--- NOTE | 2016-12-08 12:53 | DIAGNOSTIC IMAGING REPORT ---
CT ANGIOGRAM OF THE CHEST CLINICAL HISTORY: Dyspnea. Atypical chest pain. COMPARISON STUDY: No priors. TECHNIQUE: Following the IV administration of 104 cc of Optiray 320, CT angiogram of the chest was performed from the upper abdomen to the thoracic inlet utilizing the pulmonary embolus protocol. Images are reviewed in the axial, sagittal, and coronal planes. 3-D MIPS images are created and assessed. IV contrast was administered without complication. A dose lowering technique was utilized adhering to the principles of ALARA. CT DOSE: 298.83 mGycm FINDINGS: Thyroid: Imaged portions of the thyroid gland are normal in size and attenuation. Thoracic aorta: The thoracic aorta is normal in caliber and demonstrates standard 3-vessel arch anatomy. No dissection is seen. Pulmonary vasculature: The pulmonary trunk is normal in caliber. There are numerous segmental and subsegmental pulmonary emboli present within branches of the right lower lobe pulmonary artery. Subsegmental pulmonary emboli are seen within branches of the left lower lobe pulmonary artery. Heart: The heart is normal in size and configuration, and without pericardial effusion. Lungs and pleural spaces: There is a trace right pleural effusion. There are dependent patchy airspace opacities present at both lung bases, right greater than left. The upper lobes are clear. The trachea and central airways are patent. Mediastinum: There is no mediastinal lymphadenopathy. Adilene: Clear. Axillae: There is no axillary lymphadenopathy. Upper abdomen: A 3 cm bilobed cyst is present in the right lobe of the liver. Partially visualized upper abdominal viscera is otherwise within normal limits. Skeletal structures: No lytic or blastic bony lesions are seen. IMPRESSION: 1. There are segmental and subsegmental pulmonary emboli within branches of the right lower lobe pulmonary artery. 2. Subsegmental pulmonary emboli are present within branches of the left lower lobe pulmonary artery. 3. There is a trace right pleural effusion. 4. Dependent airspace opacities are present at both lung bases, right greater than left. Given the presence of pulmonary embolus this likely represents developing pulmonary infarct. An infectious/inflammatory pneumonitis is considered less likely but is the top differential consideration. Electronically signed by: Samson Condon M.D. 12/08/2016 12:52 PM Dictated Date/Time: 12/08/2016 12:46 PM
[2016-12-08 13:25] LABS: BASO % 0.3 %; BASO ABS # 0.02 K/uL (0-0.2); COMPLETE YES; EOS % 0.8 %; IG% 0.1 %; LYMPH % 25.9 %; MEAN CELL VOLUME 93.5 fL (80-100); MEAN CORPUSCULAR HEMOGLOBIN 32.2 pg (25-34); MEAN CORPUSCULAR HGB CONC 34.5 g/dl (32-36); MEAN PLATELET VOLUME 9.4 fL (7.4-10.4); NEUT % 62.9 %; PLATELET COUNT 193 K/uL (130-400); RED BLOOD COUNT 4.28 M/uL (4.2-5.4); WHITE BLOOD COUNT 7.73 K/uL (4.8-10.8)
[2016-12-08 13:57] LABS: BLOOD UREA NITROGEN 15 mg/dl (7-18); BUN/CREATININE RATIO 21.1 (10-20); CARBON DIOXIDE 27 mmol/L (21-32); CHLORIDE 100 mmol/L (98-107); CREATININE 0.72 mg/dl (0.60-1.20); GLUCOSE 79 mg/dl (70-99); POTASSIUM 4.1 mmol/L (3.5-5.1); SODIUM 134 mmol/L (136-145)
== END | disposition home or self-care (01) ==
LOC: C.CTS 12:20
PROVIDERS: ATTEND Nurse Practitioner Adult Health
DX: R07.89 Other chest pain (principal); R06.02 Shortness of breath; I26.99 Other pulmonary embolism without acute cor pulmonale; J90 Pleural effusion, not elsewhere classified; R91.8 Other nonspecific abnormal finding of lung field; Z30.9 Encounter for contraceptive management, unspecified; Z78.9 Other specified health status

== ENCOUNTER → 2016-12-21 | Outpatient (CLI) | payer BC ==
[~2016-12-21] MED LIST changes: +ENOX80IN SQ; -ETONMIS VAGRING; +WARF-281; +WARF5TAB90 PO; +XRL15 PO
[2016-12-21 11:08] LABS: INR 0.9 (0.9-1.1)
== END | disposition home or self-care (01) ==
LOC: C.LABBC 09:01
PROVIDERS: ATTEND Nurse Practitioner Adult Health
DX: I26.99 Other pulmonary embolism without acute cor pulmonale (principal)

== ENCOUNTER → 2016-12-23 | Outpatient (CLI) | payer BC ==
[2016-12-23 09:35] LABS: BASO % 0.9 %; BASO ABS # 0.04 K/uL (0-0.2); COMPLETE YES; EOS % 3.3 %; HEMATOCRIT 41.7 % (37-47); IG% 0.2 %; LYMPH % 45.5 %; LYMPH ABS # 2.08 K/uL (1.2-3.4); MEAN CELL VOLUME 92.7 fL (80-100); MEAN CORPUSCULAR HEMOGLOBIN 31.3 pg (25-34); MEAN CORPUSCULAR HGB CONC 33.8 g/dl (32-36); MEAN PLATELET VOLUME 9.1 fL (7.4-10.4); MONO % 8.8 %; NEUT % 41.3 %; PLATELET COUNT 242 K/uL (130-400); WHITE BLOOD COUNT 4.57 K/uL (4.8-10.8)
[2016-12-23 09:38] LABS: INR 1.3 (0.9-1.1); PROTHROMBIN TIME (PATIENT) 14.3 SECONDS (9.0-12.0)
== END | disposition home or self-care (01) ==
LOC: C.LAB1850 08:26
PROVIDERS: ATTEND Internal Medicine
DX: I26.99 Other pulmonary embolism without acute cor pulmonale (principal); R53.83 Other fatigue

== ENCOUNTER → 2016-12-23 | Outpatient (CLI) | payer BC | END | disposition home or self-care (01) | LOC: C.PAPS 14:28 | PROVIDERS: ATTEND Obstetrics & Gynecology | DX: Z01.419 Encounter for gynecological examination (general) (routine) without abnormal findings (principal) ==

== ENCOUNTER 2017-01-01 12:42 | Emergency (ER) | payer BC ==
[~2017-01-01] VITALS: Ht 162.6 cm; Wt 55.7 kg
[~2017-01-01 12:42] MED LIST changes: -ENOX80IN SQ; -WARF5TAB90 PO; -XRL15 PO
[2017-01-01 12:53] VITALS: TEMP 37.1; Ht 162.6 cm; Wt 55.7 kg
--- NOTE | 2017-01-01 13:47 | EMERGENCY ROOM VISIT NOTE ---
History First contact with patient: 13:21 Chief Complaint: FEVER Stated Complaint: DIAGNOSED KIDNEY INFECTION,FEVER History of Present Illness The patient is a 41 year old female who presents to the Emergency Room with complaints of feverish symptoms, nausea and right flank pain for the last few days. [facility]. She was diagnosed with a kidney infection. She was prescribed Cipro 500 mg twice daily , which she has been taking. Yesterday she felt slightly better. Her feverish symptoms returned today. She does describe urinary frequency. She denies any dysuria or hematuria. The patient was diagnosed with pulmonary emboli 3 weeks ago. She was started on Coumadin. She took her temperature at home. The highest was 99.6F. Review of Systems 10 system review performed and negative unless noted in HPI or below Past Medical/Surgical History Medical Problems: (1) Acute pulmonary embolism Social History Smoking Status: Never Smoker Drug Use: none Marital Status: Housing Status: lives with family Occupation Status: employed Current/Historical Medications Scheduled Ciprofloxacin Hcl (Cipro), 500 MG PO BID Ondasetron Odt (Zofran Odt), 4 MG SL Q6H Warfarin Sodium (Warfarin Sodium), 5 MG PO DAILY AT 1999 Physical Exam Vital Signs Date Time Temp Pulse Resp B/P (MAP) Pulse Ox O2 Delivery O2 Flow Rate FiO2 01/01/17 14:58 80 20 118/64 100 Room Air 01/01/17 12:53 37.1 113 18 133/84 98 Room Air Physical Exam VITALS: Vitals are noted on the nurse's note and reviewed by myself. Vital signs stable. GENERAL: 41-year-old female, in no acute distress, nondiaphoretic, well- developed well-nourished. SKIN: The skin was without rashes, erythema, edema, or bruising. HEAD: Normocephalic atraumatic. NECK: Supple without nuchal rigidity. No JVD. HEART: Regular rate and rhythm without murmurs gallops or rubs. LUNGS: Clear to auscultation bilaterally without wheezes, rales or rhonchi. No accessory muscle use. ABDOMEN: Positive bowel sounds x 4.Soft, tenderness to palpation in the epigastrium, without organomegaly. No guarding or rebound tenderness. Positive right-sided CVA tenderness noted. MUSCULOSKELETAL: No muscle atrophy, erythema, or edema noted. Strength 5/5 throughout. NEURO: Patient was alert and oriented to person place and time. Normal sensation to touch. No focal neurological deficits. Medical Decision & Procedures Laboratory Results 01/01/17 13:45 Red Blood Count 4.66, Mean Corpuscular Volume 91.6, Mean Corpuscular Hemoglobin 31.5, Mean Corpuscular Hemoglobin Concent 34.4, Mean Platelet Volume 9.1, Neutrophils (%) (Auto) 60.2, Lymphocytes (%) (Auto) 31.5, Monocytes (%) (Auto) 7.5, Eosinophils (%) (Auto) 0.4, Basophils (%) (Auto) 0.3, Neutrophils # (Auto) 4.03, Lymphocytes # (Auto) 2.11, Monocytes # (Auto) 0.50, Eosinophils # (Auto) 0.03, Basophils # (Auto) 0.02 01/01/17 13:45 Test 01/01/17 13:40 01/01/17 13:45 Urine Color YELLOW Urine Appearance CLEAR (CLEAR) Urine pH 7.0 (4.5-7.5) Urine Specific [place] 1.014 (1.000-1.030) Urine Protein NEG (NEG) Urine Glucose (UA) NEG (NEG) Urine Ketones NEG (NEG) Urine Occult Blood TRACE (NEG) Urine Nitrite NEG (NEG) Urine Bilirubin NEG (NEG) Urine Urobilinogen NEG (NEG) Urine Leukocyte Esterase TRACE (NEG) Urine WBC (Auto) 1-5 /hpf (0-5) Urine RBC (Auto) 0-4 /hpf (0-4) Urine Hyaline Casts (Auto) 0 /lpf (0-5) Urine Epithelial Cells (Auto) >30 /lpf (0-5) Urine Bacteria (Auto) NEG (NEG) White Blood Count 6.70 K/uL (4.8-10.8) Red Blood Count 4.66 M/uL (4.2-5.4) Hemoglobin 14.7 g/dL (12.0-16.0) Hematocrit 42.7 % (37-47) Mean Corpuscular Volume 91.6 fL (80-100) Mean Corpuscular Hemoglobin 31.5 pg (25-34) Mean Corpuscular Hemoglobin Concent 34.4 g/dl (32-36) Platelet Count 218 K/uL (130-400) Mean Platelet Volume 9.1 fL (7.4-10.4) Neutrophils (%) (Auto) 60.2 % Lymphocytes (%) (Auto) 31.5 % Monocytes (%) (Auto) 7.5 % Eosinophils (%) (Auto) 0.4 % Basophils (%) (Auto) 0.3 % Neutrophils # (Auto) 4.03 K/uL (1.4-6.5) Lymphocytes # (Auto) 2.11 K/uL (1.2-3.4) Monocytes # (Auto) 0.50 K/uL (0.11-0.59) Eosinophils # (Auto) 0.03 K/uL (0-0.5) Basophils # (Auto) 0.02 K/uL (0-0.2) RDW Standard Deviation 39.9 fL (36.4-46.3) RDW Coefficient of Variation 11.9 % (11.5-14.5) Immature Granulocyte % (Auto) 0.1 % Immature Granulocyte # (Auto) 0.01 K/uL (0.00-0.02) Prothrombin Time 24.6 SECONDS (9.0-12.0) Prothromb Time International Ratio 2.2 (0.9-1.1) Anion Gap 9.0 mmol/L (3-11) Est Creatinine Clear Calc Drug Dose 84.2 ml/min Estimated GFR () 112.9 Estimated GFR (Non- 97.4 BUN/Creatinine Ratio 16.6 (10-20) Calcium Level 9.4 mg/dl (8.5-10.1) Total Bilirubin 0.9 mg/dl (0.2-1) Aspartate Amino Transf (AST/SGOT) 22 U/L (15-37) Alanine Aminotransferase (ALT/SGPT) 75 U/L (12-78) Alkaline Phosphatase 71 U/L (45-117) Total Protein 8.5 gm/dl (6.4-8.2) Albumin 3.9 gm/dl (3.4-5.0) Globulin 4.6 gm/dl (2.5-4.0) Albumin/Globulin Ratio 0.8 (0.9-2) Lipase 201 U/L (73-393) Medications Administered Medications (Trade) Dose Ordered Sig/Zohra Route Start Time Stop Time Status Last Admin Dose Admin Ondansetron HCl (Zofran Inj) 4 mg NOW STAT IV 01/01/17 15:21 01/01/17 15:23 DC 01/01/17 15:28 4 MG ED Course Patient was seen and examined Vital signs including blood pressure were reviewed medications list was verified with patient Labs were obtained, and a saline lock was established Patient declined pain medication. Upon reevaluation, the patient was complaining of nausea. She was given 1 dose of Zofran. The patient was also seen and examined by myself supervising physician. We reviewed her workup. She and her voiced understanding. I reviewed discharge instructions the patient. They voiced understanding and had no further questions. Medical Decision Differential diagnosis: UTI, pyelonephritis, ureteral stone, renal abscess, pancreatitis, This patient is a 41-year-old female that presented to the emergency department with complaints of nausea, flank pain and feverish symptoms. She is currently being treated for a "kidney infection". She is on Cipro 500 mg twice daily. On exam, she did have CVA tenderness. She also has slight epigastric tenderness. She was nontoxic in appearance. She was afebrile here. Her workup revealed no leukocytosis. Renal function is within normal limits. I did speak with [facility]. I reviewed her records from her visit 2 days ago. It appears that her urinalysis is improving. I spoke with [facility]. They inform me that they're cultures will not be back for at least another 3 days. A repeated a urine culture here today. As the patient appears to be doing slightly better, I will continue antibiotics as prescribed. She was prescribed Zofran for nausea. She will be informed if the antibiotics need to be changed. I believe she is stable to go home. I don't find additional workup/imaging necessary. The patient is comfortable with this plan. She will have close follow-up with her primary care physician. She was discharged in good condition. This chart was completed in part utilizing [employer] Speech Voice Recognition software. Attempts were made to minimize the grammatical errors, random word insertions, pronoun errors and incomplete sentences. Any formal questions or concerns about the content, text or information contained within the body of this dictation should be directly addressed to the provider for clarification. Blood Pressure Screening Patient's blood pressure: Normal blood pressure Impression Primary Impression: UTI (urinary tract infection) Departure Information Dispostion Home / Self-Care Condition GOOD Prescriptions Ondasetron Odt (ZOFRAN ODT) 4 Mg Tab 4 MG SL Q6H for Nausea, #20 TAB Prov: Vashti Gaytan PA-C 01/01/17 Referrals ProMartín M.D. (PCP) Patient Instructions [facility] Additional Instructions You were evaluated in the emergency department for fever, nausea and flank pain. Please continue your antibiotic as prescribed. Please take Zofran 1 tab under the tongue every 6 hours as needed for nausea. It is okay to take Tylenol 650 mg every 6 hours as needed for pain or fever. A urine culture was performed today. Preliminary results should be back in 2 days. If the antibiotic needs to be changed, we will call you. Please follow-up early this week with your primary care physician. It is important to monitor your INR while on antibiotics and Coumadin. Please do not hesitate to return to the emergency department with any new or worsening symptoms
[2017-01-01 14:00] LABS: MANUAL MICROSCOPIC REQUIRED? NO; REVIEW REQ? NO; URINE APPEARANCE CLEAR (CLEAR); URINE BILIRUBIN NEG (NEG); URINE COLOR YELLOW; URINE EPITHELIAL CELL AUTO >30 /lpf (0-5); URINE NITRITE NEG (NEG); URINE SPECIFIC GRAVITY 1.014 (1.000-1.030); UROBILINOGEN NEG (NEG)
[2017-01-01 14:06] LABS: BASO % 0.3 %; BASO ABS # 0.02 K/uL (0-0.2); COMPLETE YES; EOS % 0.4 %; HEMATOCRIT 42.7 % (37-47); IG% 0.1 %; LYMPH % 31.5 %; LYMPH ABS # 2.11 K/uL (1.2-3.4); MEAN CELL VOLUME 91.6 fL (80-100); MEAN CORPUSCULAR HEMOGLOBIN 31.5 pg (25-34); MEAN CORPUSCULAR HGB CONC 34.4 g/dl (32-36); MEAN PLATELET VOLUME 9.1 fL (7.4-10.4); MONO % 7.5 %; NEUT % 60.2 %; PLATELET COUNT 218 K/uL (130-400); RED BLOOD COUNT 4.66 M/uL (4.2-5.4)
[2017-01-01 14:22] LABS: INR 2.2 (0.9-1.1); PROTHROMBIN TIME (PATIENT) 24.6 SECONDS (9.0-12.0)
[2017-01-01 14:25] LABS: BUN/CREATININE RATIO 16.6 (10-20); CALCIUM 9.4 mg/dl (8.5-10.1); CREATININE 0.76 mg/dl (0.60-1.20); POTASSIUM 3.6 mmol/L (3.5-5.1)
[2017-01-01 14:28] LABS: ALB/GLOB RATIO 0.8 (0.9-2)
[2017-01-01 14:58] VITALS: BP 118/64; PULSE 80; O2SAT 100
[2017-01-01] MEDS ORDERED: CIPR1TAB10 PO (15:05)
[2017-01-01] MEDS ORDERED: WARF-246 PO (15:05)
[2017-01-01] MEDS ORDERED: ONDANSETRON INJ 2 MG/ML 2 ML VIAL IV STA (15:21)
[2017-01-01] MEDS ORDERED: ONDA4TAB10 SL (15:22)
--- NOTE | 2017-01-01 20:05 | EMERGENCY ROOM VISIT NOTE ---
ED Visit Note First contact with patient: 13:21 I have personally evaluated this patient examined her and reviewed the pertinent labs and data. I have discussed the case with Barb Gaytan, the physician medication assistant and agree with the plan. Please refer to the PA note. This patient has had some urinary symptoms and right back pain. She did have a recent PE and is on Coumadin apparently she was supratherapeutic on Monday and now is slightly on the lower side at 2.2. She looks well on exam and her urine is been cloudy. We did review her urine from [facility] and it did look infected the other day, she's been on Cipro. She does have multiple medication allergies. She denies dysuria. She is afebrile here and has a significant white count at this point I would continue the Cipro. The cultures are pending we did another culture here. I do not think is likely related to her PE and it seems lower in the back and into the abdomen itself in the lower abdomen. She is anticoagulation. I recommend she follow up with her doctor tomorrow for recheck and return if fever, worsening symptoms, shortness breath, any new problems or concerns.
== END 2017-01-01 15:28 | disposition home or self-care (01) ==
LOC: C.EDB 12:43 → C.EDA 15:28
DX: N39.0 Urinary tract infection, site not specified (principal); R50.9 Fever, unspecified; R11.0 Nausea; R10.9 Unspecified abdominal pain; I26.99 Other pulmonary embolism without acute cor pulmonale; Z79.01 Long term (current) use of anticoagulants; Z79.899 Other long term (current) drug therapy

== ENCOUNTER 2017-01-03 06:06 | Emergency (ER) | payer BC ==
[~2017-01-03] VITALS: Ht 162.6 cm; Wt 56.2 kg
[~2017-01-03 06:06] MED LIST changes: +CIPR1TAB10 PO; +ONDA4TAB10 SL; +WARF-246 PO; -WARF-281
[2017-01-03 06:08] VITALS: TEMP 36.8; Ht 162.6 cm; Wt 56.2 kg
--- NOTE | 2017-01-03 06:33 | EMERGENCY ROOM VISIT NOTE ---
History First contact with patient: 06:16 Chief Complaint: BACK PAIN Stated Complaint: PAIN TO RT OF TAILBONE,HX OF PE,KIDNEY INFECTION History of Present Illness The patient is a 41 year old female who presents to the Emergency Room with complaints of pain in her buttocks which woke her up at 0530 this morning (1 hour ago). She describes the pain as a bruise, almost as if she were punched and describes tightness. on her right gluteus, lateral to the tailbone. She is unable to sit squarely on her tailbone. She is unable to walk on her right leg or weight bear on her right leg; these activities aggravate her symptoms to an 8/10 in pain. No numbness or tingling, no shooting pains down the back of the leg. She also reports achiness in her lower ribs and back yesterday which she associates with her recent PEs, which has resolved and was different than todays pain. She reports nausea yesterday which has resolved, but no nausea/vomiting/diarrhea /fever noted today. She does report increased frequency of urination since she was found to have a UTI on Monday. 12/10/16 was her last LMP; reports there is no chance she could be . Review of Systems Constitutional: No fever, No chills, No sweats, No weight loss, No weakness , No fatigue, No problem reported Respiratory: No cough, No sputum, No wheezing, No shortness of breath, No dyspnea on exertion, No dyspnea at rest, No hemoptysis, No problem reported Cardiovascular: No chest pain, No orthopnea, No PND, No edema, No claudication, No palpitations, No problem reported Abdomen: No pain, No nausea, No vomiting, No diarrhea, No constipation, No GI bleeding, No problem reported Musculoskeletal: + muscle pain Genitourinary - Female: + urinary frequency Hematologic / Lymphatic: No abnormal bleeding/bruising, No clotting problems , No swollen lymph nodes, No night sweats, No problem reported Integumentary: No rash, No itch, No new/changing skin lesions, No color change, No bleeding, No problem reported Past Medical/Surgical History Medical Problems: (1) Acute pulmonary embolism Social History Smoking Status: Never Smoker Drug Use: none Marital Status: Housing Status: lives with family Occupation Status: employed Current/Historical Medications Scheduled Ciprofloxacin Hcl (Cipro), 500 MG PO BID Ondasetron Odt (Zofran Odt), 4 MG SL Q6H Warfarin Sodium (Warfarin Sodium), 5 MG PO DAILY AT 1999 Physical Exam Vital Signs Date Time Temp Pulse Resp B/P (MAP) Pulse Ox O2 Delivery O2 Flow Rate FiO2 01/03/17 08:04 80 18 110/55 95 Room Air 01/03/17 06:26 136 01/03/17 06:08 36.8 139 18 139/86 96 Room Air Physical Exam General Appearance: WD/WN, + mild distress (alternating from standing to laying on left side ) Eyes: normal inspection, PERRL, EOMI ENT: hearing grossly normal Neck: supple, no adenopathy, thyroid normal, no JVD Respiratory/Chest: chest non-tender, lungs clear, normal breath sounds, no respiratory distress Cardiovascular: regular rate, rhythm, no edema, no JVD, no murmur, normal peripheral pulses Abdomen / GI: normal bowel sounds, non tender, soft Back: normal inspection, no CVA tenderness, no muscle spasm, normal range of motion Extremities: normal inspection, no calf tenderness, no pedal edema, normal range of motion, + pertinent finding (negative straight leg raise ) 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, no motor/sensory deficits, alert , normal mood/affect, normal reflexes, oriented x 3, + abnormal gait (unable to weight bear ) Medical Decision & Procedures Laboratory Results 01/03/17 07:05 Red Blood Count 4.40, Mean Corpuscular Volume 91.8, Mean Corpuscular Hemoglobin 31.1, Mean Corpuscular Hemoglobin Concent 33.9, Mean Platelet Volume 8.9, Neutrophils (%) (Auto) 53.5, Lymphocytes (%) (Auto) 35.8, Monocytes (%) (Auto) 8.3, Eosinophils (%) (Auto) 1.5, Basophils (%) (Auto) 0.6, Neutrophils # (Auto) 3.46, Lymphocytes # (Auto) 2.32, Monocytes # (Auto) 0.54, Eosinophils # (Auto) 0.10, Basophils # (Auto) 0.04 01/03/17 07:05 Test 01/03/17 07:05 White Blood Count 6.48 K/uL (4.8-10.8) Red Blood Count 4.40 M/uL (4.2-5.4) Hemoglobin 13.7 g/dL (12.0-16.0) Hematocrit 40.4 % (37-47) Mean Corpuscular Volume 91.8 fL (80-100) Mean Corpuscular Hemoglobin 31.1 pg (25-34) Mean Corpuscular Hemoglobin Concent 33.9 g/dl (32-36) Platelet Count 197 K/uL (130-400) Mean Platelet Volume 8.9 fL (7.4-10.4) Neutrophils (%) (Auto) 53.5 % Lymphocytes (%) (Auto) 35.8 % Monocytes (%) (Auto) 8.3 % Eosinophils (%) (Auto) 1.5 % Basophils (%) (Auto) 0.6 % Neutrophils # (Auto) 3.46 K/uL (1.4-6.5) Lymphocytes # (Auto) 2.32 K/uL (1.2-3.4) Monocytes # (Auto) 0.54 K/uL (0.11-0.59) Eosinophils # (Auto) 0.10 K/uL (0-0.5) Basophils # (Auto) 0.04 K/uL (0-0.2) RDW Standard Deviation 40.0 fL (36.4-46.3) RDW Coefficient of Variation 12.0 % (11.5-14.5) Immature Granulocyte % (Auto) 0.3 % Immature Granulocyte # (Auto) 0.02 K/uL (0.00-0.02) Prothrombin Time 32.6 SECONDS (9.0-12.0) Prothromb Time International Ratio 2.9 (0.9-1.1) Anion Gap 9.0 mmol/L (3-11) Est Creatinine Clear Calc Drug Dose 73.5 ml/min Estimated GFR () 95.9 Estimated GFR (Non- 82.7 BUN/Creatinine Ratio 13.4 (10-20) Calcium Level 9.4 mg/dl (8.5-10.1) Troponin I < 0.015 ng/ml (0-0.045) Medications Administered Medications (Trade) Dose Ordered Sig/Zohra Route Start Time Stop Time Status Last Admin Dose Admin Acetaminophen (Tylenol Tab) 1,000 mg NOW STAT PO 01/03/17 06:55 01/03/17 06:56 DC 01/03/17 07:13 1,000 MG ECG Indication: back/shoulder pain Rate (beats per minute): 80 Rhythm: normal sinus Comparison ECG Date: 09 December 2016 Change: no significant change ED Course 0620: full h&p obtained from patient 0640: discussed case with Dr. Park, who obtained his own h&p 0650: ordered CXR and Lumbar xray; dr. park placed order for pt/inr, cmp, cbc 0815: patient reassessed by Dr. Park, patient is fine and declines any pain management beyond tylenol. Discussed x ray results 0830: Discussed with patient warning signs that would warrant return to ED Medical Decision Prior records/ancillary studies reviewed. Triage Nursing notes reviewed. Additional history obtained from patient. The patient's history was concerning for back pain. Differential diagnosis: Etiologies such as musculoskeletal, disc herniation, fracture, aortic disease, metastatic disease, cord compression, discitis, infection, renal colic, gastrointestinal, acute exacerbation of chronic back pain, sciatica, cauda equina, as well as others were entertained. Physical findings: As above. No focal neurologic findings noted. ER treatment provided: Tylenol for pain, reassurance. On reassessment the patient felt better. Diagnostics interpreted by me: The labs revealed INR of 2.9 and normal CBC, BMP, trop Imaging studies: TWO VIEW CHEST CLINICAL HISTORY: Atypical chest pain. Back pain. FINDINGS: PA and lateral chest radiographs are correlated with chest CT dated 12/08/2016. The cardiomediastinal silhouette is unremarkable. The lungs and pleural spaces are clear. There is no pneumothorax. The bony thorax appears intact. IMPRESSION: The lungs are clear. LUMBAR SPINE 2 OR 3 VIEWS CLINICAL HISTORY: lower back pain COMPARISON STUDY: No previous studies for comparison. FINDINGS: There is no pathologic bowel dilatation. There are right upper quadrant calcifications likely representing gallstones. No fractures or subluxations are visualized. No destructive lesions are evident. IMPRESSION: 1. No fractures subluxations or destructive lesions are visualized 2. Suspected cholelithiasis By the evaluation outlined above emergent etiologies such as fracture, aortic disease, metastatic disease, infection, renal colic, gastrointestinal, cord compression, cauda equina, as well as others were deemed relatively unlikely. The patient and were informed about the findings as listed above. All questions were answered and they were pleased with the treatment. Return instructions were outlined and the patient was discharged in stable condition. Referral: The patient was referred back to her primary care physician for follow-up in 2 to 3 days for a recheck of the current condition. Blood Pressure Screening Patient's blood pressure: Normal blood pressure Impression Primary Impression: Back pain Departure Information Dispostion Home / Self-Care Condition GOOD Referrals Pro,Martín Archibald M.D. (PCP) Patient Instructions Back Pain - [facility] Resident Tracking Resident Involvement: Resident Care Provided Care Provided: Adult ED Problem Qualifiers Primary Impression: Back pain Back pain location: low back pain Chronicity: acute Back pain laterality: right Sciatica presence: without sciatica Qualified Codes: M54.5 - Low back pain
[2017-01-03] MEDS ORDERED: ACETAMINOPHEN 500 MG TAB PO STA (06:55)
[2017-01-03 07:30] LABS: BASO % 0.6 %; BASO ABS # 0.04 K/uL (0-0.2); COMPLETE YES; EOS % 1.5 %; HEMATOCRIT 40.4 % (37-47); IG% 0.3 %; LYMPH % 35.8 %; LYMPH ABS # 2.32 K/uL (1.2-3.4); MEAN CELL VOLUME 91.8 fL (80-100); MEAN CORPUSCULAR HEMOGLOBIN 31.1 pg (25-34); MEAN CORPUSCULAR HGB CONC 33.9 g/dl (32-36); MEAN PLATELET VOLUME 8.9 fL (7.4-10.4); MONO % 8.3 %; NEUT % 53.5 %; PLATELET COUNT 197 K/uL (130-400); WHITE BLOOD COUNT 6.48 K/uL (4.8-10.8)
[2017-01-03 07:32] LABS: INR 2.9 (0.9-1.1); PROTHROMBIN TIME (PATIENT) 32.6 SECONDS (9.0-12.0)
[2017-01-03 07:47] LABS: BLOOD UREA NITROGEN 12 mg/dl (7-18); BUN/CREATININE RATIO 13.4 (10-20); CALCIUM 9.4 mg/dl (8.5-10.1); CARBON DIOXIDE 26 mmol/L (21-32); CHLORIDE 104 mmol/L (98-107); CREATININE 0.87 mg/dl (0.60-1.20); GLUCOSE 102 mg/dl (70-99); POTASSIUM 3.6 mmol/L (3.5-5.1); SODIUM 138 mmol/L (136-145)
[2017-01-03 08:04] VITALS: BP 110/55; PULSE 80; O2SAT 95
--- NOTE | 2017-01-03 08:19 | DIAGNOSTIC IMAGING REPORT ---
LUMBAR SPINE 2 OR 3 VIEWS CLINICAL HISTORY: lower back pain COMPARISON STUDY: No previous studies for comparison. FINDINGS: There is no pathologic bowel dilatation. There are right upper quadrant calcifications likely representing gallstones. No fractures or subluxations are visualized. No destructive lesions are evident. IMPRESSION: 1. No fractures subluxations or destructive lesions are visualized 2. Suspected cholelithiasis Electronically signed by: Angel Luis Cortez M.D. 01/03/2017 8:18 AM Dictated Date/Time: 01/03/2017 8:17 AM
--- NOTE | 2017-01-03 08:19 | DIAGNOSTIC IMAGING REPORT ---
TWO VIEW CHEST CLINICAL HISTORY: Atypical chest pain. Back pain. FINDINGS: PA and lateral chest radiographs are correlated with chest CT dated 12/08/2016. The cardiomediastinal silhouette is unremarkable. The lungs and pleural spaces are clear. There is no pneumothorax. The bony thorax appears intact. IMPRESSION: The lungs are clear. Electronically signed by: Samson Condon M.D. 01/03/2017 8:18 AM Dictated Date/Time: 01/03/2017 8:17 AM
--- NOTE | 2017-01-03 13:18 | EMERGENCY ROOM VISIT NOTE ---
History Report prepared by Sobia: Vanesa Oliveira Under the Supervision of: Dr. Tad Park D.O. First contact with patient: 06:31 Chief Complaint: BACK PAIN Stated Complaint: PAIN TO RT OF TAILBONE,HX OF PE,KIDNEY INFECTION History of Present Illness The patient is a 41 year old female who presents to the Emergency Room with complaints of persistent right lower back and buttocks pain that began around 0530 this morning. She currently rates her discomfort as an 8/10 in severity. The patient states that she woke this morning with pain to her right buttocks and back. She states that the pain is worsened with weightbearing and lying on the right side of her back. The patient additionally reports that Monday she developed a kidney infection and has been on 500 mg of Cipro since Monday night. The patient states that she does travel a lot for work. The patient denies swelling of calves, history of immobilization or recent surgery, prior history of DVT, hemoptysis, history of malignancy, or history of smoking. She does report that four weeks ago she was diagnosed with PEs, but states that her doctors are unsure of the cause. The patient notes that yesterday she noticed increased chest tightness that was more than she had previously. She states that she treated the pain with Tylenol. The patient denies headache, change in vision, fevers, shortness of breath, nausea, vomiting, diarrhea, weakness or numbness in legs, pain radiating down her legs, pain with urination, and melena. Source of History: patient Onset: 0530 this morning Position: back (lower), buttock (right) Symptom Intensity: 8/10 Timing: other (persistent) Associated Symptoms: + chest pain Review of Systems See HPI for pertinent positives & negatives. A total of 10 systems reviewed and were otherwise negative. Past Medical & Surgical Medical Problems: (1) Acute pulmonary embolism Family History Unobtainable family history due to adoption Social History Smoking Status: Never Smoker Drug Use: none Marital Status: Housing Status: lives with family Occupation Status: employed Current/Historical Medications Scheduled Ciprofloxacin Hcl (Cipro), 500 MG PO BID Ondasetron Odt (Zofran Odt), 4 MG SL Q6H Warfarin Sodium (Warfarin Sodium), 5 MG PO DAILY AT 2000 Allergies Coded Allergies: Penicillins (Verified Allergy, Mild, 01/01/17) Amoxicillin (Verified Allergy, Unknown, ., 01/01/17) Sulfa Drugs (Verified Allergy, Unknown, /, 01/01/17) Uncoded Allergies: dyes in varous drugs (Allergy, Mild, HIVES, 12/29/16) Includes dye in Xarelto, Eliquis, and warfarin 2 mg Physical Exam Vital Signs Date Time Temp Pulse Resp B/P (MAP) Pulse Ox O2 Delivery O2 Flow Rate FiO2 01/03/17 08:04 80 18 110/55 95 Room Air 01/03/17 06:26 136 01/03/17 06:08 36.8 139 18 139/86 96 Room Air Physical Exam GENERAL: Sitting up on edge bed leaning towards the left, alert, well appearing , well nourished, no acute distress, non-toxic EYE EXAM: normal conjunctiva. OROPHARYNX: no exudate, no erythema, lips, buccal mucosa, and tongue normal and mucous membranes are moist NECK: supple, no nuchal rigidity, no adenopathy, non-tender LUNGS: Clear to auscultation. Normal chest wall mechanics HEART: no murmurs, S1 normal and S2 normal ABDOMEN: abdomen soft, non-tender, normo-active bowel sounds, no masses, no rebound or guarding. BACK: Back is symmetrical on inspection and there is no deformity, tenderness in the right upper gluteus tracking just below the SI joint, tracking 4 inches inferolaterally no CVA tenderness. SKIN: no rashes and no bruising UPPER EXTREMITIES: upper extremities are grossly normal. LOWER EXTREMITIES: No pitting edema. Flexion/extension hip knee ankle and EHL 5 /5 bilaterally, gross sensations intact patellar reflexes 2/4, DP 2/4. NEURO EXAM: Normal sensorium, cranial nerves II-XII grossly intact, normal speech, no weakness of arms. Medical Decision & Procedures ER Provider Diagnostic Interpretation: Radiology results as stated below per my review and the radiologist's interpretation: LUMBAR SPINE 2 OR 3 VIEWS CLINICAL HISTORY: lower back pain COMPARISON STUDY: No previous studies for comparison. FINDINGS: There is no pathologic bowel dilatation. There are right upper quadrant calcifications likely representing gallstones. No fractures or subluxations are visualized. No destructive lesions are evident. IMPRESSION: 1. No fractures subluxations or destructive lesions are visualized 2. Suspected cholelithiasis Electronically signed by: Angel Luis Cortez M.D. 01/03/2017 8:18 AM Dictated Date/Time: 01/03/2017 8:17 AM TWO VIEW CHEST CLINICAL HISTORY: Atypical chest pain. Back pain. FINDINGS: PA and lateral chest radiographs are correlated with chest CT dated 12/08/2016. The cardiomediastinal silhouette is unremarkable. The lungs and pleural spaces are clear. There is no pneumothorax. The bony thorax appears intact. IMPRESSION: The lungs are clear. Electronically signed by: Samson Condon M.D. 01/03/2017 8:18 AM Dictated Date/Time: 01/03/2017 8:17 AM Laboratory Results 01/03/17 07:05 Red Blood Count 4.40, Mean Corpuscular Volume 91.8, Mean Corpuscular Hemoglobin 31.1, Mean Corpuscular Hemoglobin Concent 33.9, Mean Platelet Volume 8.9, Neutrophils (%) (Auto) 53.5, Lymphocytes (%) (Auto) 35.8, Monocytes (%) (Auto) 8.3, Eosinophils (%) (Auto) 1.5, Basophils (%) (Auto) 0.6, Neutrophils # (Auto) 3.46, Lymphocytes # (Auto) 2.32, Monocytes # (Auto) 0.54, Eosinophils # (Auto) 0.10, Basophils # (Auto) 0.04 01/03/17 07:05 Test 01/03/17 07:05 White Blood Count 6.48 K/uL (4.8-10.8) Red Blood Count 4.40 M/uL (4.2-5.4) Hemoglobin 13.7 g/dL (12.0-16.0) Hematocrit 40.4 % (37-47) Mean Corpuscular Volume 91.8 fL (80-100) Mean Corpuscular Hemoglobin 31.1 pg (25-34) Mean Corpuscular Hemoglobin Concent 33.9 g/dl (32-36) Platelet Count 197 K/uL (130-400) Mean Platelet Volume 8.9 fL (7.4-10.4) Neutrophils (%) (Auto) 53.5 % Lymphocytes (%) (Auto) 35.8 % Monocytes (%) (Auto) 8.3 % Eosinophils (%) (Auto) 1.5 % Basophils (%) (Auto) 0.6 % Neutrophils # (Auto) 3.46 K/uL (1.4-6.5) Lymphocytes # (Auto) 2.32 K/uL (1.2-3.4) Monocytes # (Auto) 0.54 K/uL (0.11-0.59) Eosinophils # (Auto) 0.10 K/uL (0-0.5) Basophils # (Auto) 0.04 K/uL (0-0.2) RDW Standard Deviation 40.0 fL (36.4-46.3) RDW Coefficient of Variation 12.0 % (11.5-14.5) Immature Granulocyte % (Auto) 0.3 % Immature Granulocyte # (Auto) 0.02 K/uL (0.00-0.02) Prothrombin Time 32.6 SECONDS (9.0-12.0) Prothromb Time International Ratio 2.9 (0.9-1.1) Anion Gap 9.0 mmol/L (3-11) Est Creatinine Clear Calc Drug Dose 73.5 ml/min Estimated GFR () 95.9 Estimated GFR (Non- 82.7 BUN/Creatinine Ratio 13.4 (10-20) Calcium Level 9.4 mg/dl (8.5-10.1) Troponin I < 0.015 ng/ml (0-0.045) Laboratory results per my review. Medications Administered Medications (Trade) Dose Ordered Sig/Zohra Route Start Time Stop Time Status Last Admin Dose Admin Acetaminophen (Tylenol Tab) 1,000 mg NOW STAT PO 01/03/17 06:55 01/03/17 06:56 DC 01/03/17 07:13 1,000 MG ECG Indication: chest pain, back/shoulder pain Rate (beats per minute): 80 Rhythm: sinus rhythm Findings: RBBB (incomplete), other (normal axis) ED Course ED COURSE: Vital signs were reviewed and showed tachycardic The patients medical record was reviewed The above diagnostic studies were performed and reviewed. ED treatments and interventions as stated above. 0639: The patient was evaluated in room B12B. A complete history and physical examination was performed. 0655: Ordered Tylenol Tab 1000 mg PO. 0748: I went to reevaluated the patient and she is getting her x-ray. 0814: I updated the patient at this time and she does not want anything additional for pain. 0828: Upon reevaluation, the patient is resting comfortably.I discussed my findings with the patient and she understands and agrees with the treatment plan. Based on the patients age, coexisting illnesses, exam and lab findings the decision to treat as an outpatient was made. The patient remained stable while under my care. The patient appeared well at the time of discharge. Medical Decision Differential diagnoses includes but is not limited to lumbar radiculopathy, muscle strain, facture, cauda equina, mass, and disc herniation. Patient is a 41-year-old female who presents to ER for right gluteus pain. Pain is located just below her right SI joint. It's painful to palpate. It is painful to sit on. We clearly muscle skeletal. No signs of cauda equina. Neurologically intact. CBC along with the MP was unremarkable. INR therapeutic at 2.9. Previous PEs. She did note some chest pain yesterday which is consistent with her PE pain which has been present since she was diagnosed. She notes it was slightly worse yesterday but now has improved significant. With a therapeutic INR, negative troponin this was not pursued any further. Based on her symptoms I offered additional pain medications but she declined for her right gluteus pain. She is updated bedside and discharged follow-up with PCP. Discussed with Pt concerning signs and symptoms to watch out for. Pt was instructed to follow up with their PCP and discussed with the patient their option to return to the ED at anytime for persistent or worsening symptoms. The appropriate anticipatory guidance and out-patient management, including indications for return to the emergency department, were explained at length to the patient and understood. Medication Reconcilliation Current Medication List: was personally reviewed by me Blood Pressure Screening Patient's blood pressure: Normal blood pressure Blood pressure disposition: Did not require urgent referral Impression Primary Impression: Back pain Scribe Attestation The scribe's documentation has been prepared under my direction and personally reviewed by me in its entirety. I confirm that the note above accurately reflects all work, treatment, procedures, and medical decision making performed by me. Departure Information Dispostion Home / Self-Care Referrals Martín Allen M.D. (PCP) Forms HOME CARE DOCUMENTATION FORM, IMPORTANT VISIT INFORMATION Patient Instructions Back Pain - [facility], My [facility] Additional Instructions Please follow up with your primary care doctor with in the next 24 hours. Any worsening of your symptoms, please return to the ED immediately. This includes any fevers greater than 100.4, worsening pain, chest pain, shortness breath, persistent nausea, vomiting, unable to eat or drink, weakness or numbness in arms or legs, unable to void/urinate, unable to move your bowels, numbness in her groin, or any other concerning signs or symptoms from your standpoint. Please continue Tylenol as needed. Your INR/Coumadin level was 2.9 today. Problem Qualifiers Primary Impression: Back pain Back pain location: back pain in unspecified location Chronicity: unspecified Back pain laterality: unspecified Qualified Codes: M54.9 - Dorsalgia, unspecified
== END 2017-01-03 08:35 | disposition home or self-care (01) ==
LOC: C.EDB 06:07
DX: M54.5 Low back pain (principal); I45.10 Unspecified right bundle-branch block; Z86.711 Personal history of pulmonary embolism; Z79.01 Long term (current) use of anticoagulants; Z88.0 Allergy status to penicillin; Z88.1 Allergy status to other antibiotic agents; Z88.2 Allergy status to sulfonamides

== ENCOUNTER → 2017-01-04 | Outpatient (CLI) | payer BC | END | disposition home or self-care (01) | LOC: C.LABSPEC 17:45 | PROVIDERS: ATTEND Physician Assistant | DX: R39.9 Unspecified symptoms and signs involving the genitourinary system (principal) ==

== ENCOUNTER → 2017-01-11 | Outpatient (CLI) | payer BC ==
[~2017-01-11] MED LIST changes: -CIPR1TAB10 PO; -ONDA4TAB10 SL; +ONDA4TAB65 PO
--- NOTE | 2017-01-11 08:59 | DIAGNOSTIC IMAGING REPORT ---
GALLBLADDER-ABD LIMITED CLINICAL HISTORY: 41 years-old Female presenting with R14.0 Abdominal [id number] Atypical chest [id number] Pulmona. TECHNIQUE: Real-time grayscale and limited color Doppler ultrasound imaging of the abdomen limited to the right upper quadrant was performed. COMPARISON: None. FINDINGS: Pancreas: Visualized portions of the pancreatic head and body normal. Liver: A focal cluster of well-defined anechoic cystic spaces noted in the right hepatic lobe measuring up to 1.8 cm. These likely represent hepatic cysts. Liver parenchyma otherwise normal in echogenicity. No sonographic evidence of hepatic mass. Main portal vein patent with normal directional flow. Biliary: No intrahepatic biliary ductal dilatation. Common bile duct measures up to 9-10 mm in diameter. Gallbladder: Gallstones without evidence of gallbladder distention, wall thickening, or pericholecystic fluid or inflammatory change. Echogenic intramural foci noted at the fundus with ringdown artifact suggesting adenomyomatosis. Right kidney: Normal in appearance. No hydronephrosis. Ascites: None. IMPRESSION: 1. Cholelithiasis without evidence of cholecystitis. 2. Extrahepatic biliary ductal dilatation. A common duct stone cannot be excluded. If there is clinical concern, MRCP could be obtained. 3. Suspected hepatic cysts. Electronically signed by: Leroy Fernandez M.D. 01/11/2017 8:57 AM Dictated Date/Time: 01/11/2017 8:55 AM
== END | disposition home or self-care (01) ==
LOC: C.ULTR 07:26
PROVIDERS: ATTEND Physician Assistant
DX: I26.99 Other pulmonary embolism without acute cor pulmonale (principal); K80.20 Calculus of gallbladder without cholecystitis without obstruction; R07.89 Other chest pain; R14.0 Abdominal distension (gaseous); K83.8 Other specified diseases of biliary tract

== ENCOUNTER → 2017-01-16 | Outpatient (CLI) | payer BC ==
[~2017-01-16] MED LIST changes: +LORA-741 PO
--- NOTE | 2017-01-16 08:04 | DIAGNOSTIC IMAGING REPORT ---
MRCP CLINICAL HISTORY: Cholelithiasis. Biliary ductal dilatation. COMPARISON STUDY: Right upper quadrant ultrasound January 11, [address] of the abdomen and pelvis January 12, 2017. TECHNIQUE: Utilizing a 1.5 Gregoria magnet, multiplanar, multiecho imaging of the upper abdomen was performed utilizing heavily T2 weighted pulsing sequences. No intravenous contrast was administered. FINDINGS: Multiple gallstones are noted within the gallbladder. There is no pericholecystic fluid. No common bile duct calculi are identified. There is no intrahepatic biliary ductal dilatation. The main common bile duct is dilated, measuring 1 cm in caliber. No distal mass or calculus is identified by MRI. The course and caliber of the main pancreatic duct is normal. The morphology of the liver is normal. A 2.9 cm T2 hyperintense right hepatic lobe lesion likely reflects a cyst when correlating with prior CT. An additional 1.2 cm right hepatic lobe lesion adjacent to the IVC may reflect a cyst or hemangioma. No additional hepatic lesions are present. There is no abdominal ascites or lymphadenopathy. IMPRESSION: 1. Mild dilatation of the common bile duct with no common bile duct calculi or mass identified. This biliary ductal dilatation is of questionable clinical significance, particularly if normal liver function tests. However, a type I choledochal cyst could have this appearance. No intrahepatic biliary ductal dilatation. 2. Cholelithiasis. Electronically signed by: Tian Sher M.D. 01/16/2017 8:02 AM Dictated Date/Time: 01/16/2017 7:34 AM
== END | disposition home or self-care (01) ==
LOC: C.MRIBC 06:32
PROVIDERS: ATTEND Physician Assistant
DX: K80.20 Calculus of gallbladder without cholecystitis without obstruction (principal)

== ENCOUNTER 2017-01-22 10:59 | Emergency (ER) | payer BC ==
[~2017-01-22] VITALS: Ht 162.6 cm; Wt 55.6 kg
[2017-01-22 11:11] VITALS: Ht 162.6 cm; Wt 55.6 kg
[2017-01-22 11:20] VITALS: O2SAT 100
[2017-01-22 11:50] LABS: HEMATOCRIT 40.3 % (37-47); MEAN CELL VOLUME 92.6 fL (80-100); MEAN CORPUSCULAR HEMOGLOBIN 31.3 pg (25-34); MEAN CORPUSCULAR HGB CONC 33.7 g/dl (32-36); MEAN PLATELET VOLUME 8.9 fL (7.4-10.4); PLATELET COUNT 254 K/uL (130-400); RED BLOOD COUNT 4.35 M/uL (4.2-5.4); WHITE BLOOD COUNT 7.14 K/uL (4.8-10.8)
[2017-01-22 11:58] LABS: ALT/SGPT 32 U/L (12-78); BLOOD UREA NITROGEN 13 mg/dl (7-18); BUN/CREATININE RATIO 19.3 (10-20); CALCIUM 8.8 mg/dl (8.5-10.1); CARBON DIOXIDE 29 mmol/L (21-32); CHLORIDE 102 mmol/L (98-107); CREATININE 0.69 mg/dl (0.60-1.20); GLUCOSE 115 mg/dl (70-99); POTASSIUM 3.4 mmol/L (3.5-5.1); SODIUM 137 mmol/L (136-145)
[2017-01-22 12:03] LABS: ALB/GLOB RATIO 1.1 (0.9-2); ALKALINE PHOSPHATASE 56 U/L (45-117); AST/SGOT 16 U/L (15-37)
[2017-01-22] MEDS ORDERED: ALUMINUM/MAGNESIUM SUSP 30 ML UDC PO STA (12:03)
[2017-01-22] MEDS ORDERED: LIDOCAINE HCL 2% VISC SOLN 20 ML UDC PO STA (12:03)
[2017-01-22 12:05] LABS: INR 2.7 (0.9-1.1); PARTIAL THROMBOPLASTIN RATIO 1.8; PROTHROMBIN TIME (PATIENT) 27.4 SECONDS (9.0-12.0)
[2017-01-22] MEDS ORDERED: PANTOprazole INJ 40 MG in SYRINGE 0 ML IV ONE (12:15)
--- NOTE | 2017-01-22 13:06 | EMERGENCY ROOM VISIT NOTE ---
History First contact with patient: 11:50 Chief Complaint: ABDOMINAL PAIN Stated Complaint: ABD. PAIN, BLACK STOOL PATIENT ON WARFARIN History of Present Illness The patient is a 41 year old female who presents to the Emergency Room with complaints of epigastric pain and dark stools today. The patient is currently on Coumadin for PE. The patient is already under the care of gastroenterology for her upper abdominal pain. She states at first it was on the right side then it went more centrally located. She had an ultrasound done for her gallbladder which was negative except for slightly dilated duct. She then underwent an endoscopy on Monday. She held her Coumadin Monday and last night. She did have biopsies done with the endoscopy. The endoscopy itself did not reveal any abnormalities. She did not have any ulcers. Biopsies are pending. This was performed by [facility] gastroenterology. The patient is concerned because today she noticed her stools were dark. She states yesterday they were normal. She did not notice any bright red blood in her stools. She did not notice any blood in her urine. She states that her last INR was on Monday and was 2.5 which is therapeutic for her. The patient admits to slight nausea but denies any vomiting. She states the pain today is mainly in the epigastric region. She denies any urinary symptoms of frequency, urgency, dysuria or hematuria. The patient denies any diarrhea. Review of Systems 10 system review was performed and was negative unless stated otherwise history of present illness. Past Medical/Surgical History Medical Problems: (1) Acute pulmonary embolism Family History Unobtainable family history due to adoption Social History Smoking Status: Never Smoker Drug Use: none Marital Status: Housing Status: lives with family Occupation Status: employed Current/Historical Medications Scheduled Warfarin Sodium (Warfarin Sodium), 5 MG PO UD Scheduled PRN Lorazepam (Ativan), 0.5 MG PO BID PRN for Anxiety Allergies Coded Allergies: Red Dye (Unverified Allergy, Severe, HEAD TO TOE HIVES AND ITCHING, ) Penicillins (Verified Allergy, Mild, 01/22/17) Amoxicillin (Verified Allergy, Unknown, ., 01/22/17) Sulfa Drugs (Verified Allergy, Unknown, /, 01/22/17) Uncoded Allergies: dye in various drugs (Allergy, Intermediate, HIVES, 01/12/17) Apixaban 5 mg tab; Rivaroxaban 15 mg tab; Coumadin 2 mg tab Physical Exam Vital Signs Date Time Temp Pulse Resp B/P (MAP) Pulse Ox O2 Delivery O2 Flow Rate FiO2 01/22/17 12:36 94 20 100 01/22/17 12:30 116/83 01/22/17 12:06 100 19 100 01/22/17 12:01 125/81 01/22/17 11:59 95 18 99 01/22/17 11:31 84 01/22/17 11:30 120/83 01/22/17 11:29 101 18 120/83 100 Room Air 01/22/17 11:28 132/79 01/22/17 11:20 100 Room Air 01/22/17 11:20 36.8 107 18 157/90 100 Room Air 01/22/17 11:11 36.8 107 18 157/90 97 Room Air Physical Exam GENERAL: 41-year-old female appears in no acute distress. MENTAL STATUS: Alert and oriented 3. MOUTH: Mucosa is moist NECK: Supple, no lymphadenopathy noted. No carotid bruits noted. LUNGS: Clear auscultation without wheezes rales or rhonchi. CARDIAC: Regular rate and rhythm without murmur. Pulses is full and equal throughout. BACK: No CVA tenderness noted. ABDOMEN: Positive bowel sounds all 4 quadrants. Soft, tenderness palpation in the epigastric region otherwise nontender to palpation without organomegaly or masses. RECTAL: No external masses noted. Anal sphincter tone intact. No internal masses noted. Stool guaiac was positive. EXTREMITIES: No cyanosis or edema noted. Medical Decision & Procedures Laboratory Results 01/22/17 11:20 01/22/17 11:20 Test 01/22/17 11:20 Red Blood Count 4.35 M/uL (4.2-5.4) Mean Corpuscular Volume 92.6 fL (80-100) Mean Corpuscular Hemoglobin 31.3 pg (25-34) Mean Corpuscular Hemoglobin Concent 33.7 g/dl (32-36) RDW Standard Deviation 41.4 fL (36.4-46.3) RDW Coefficient of Variation 12.2 % (11.5-14.5) Mean Platelet Volume 8.9 fL (7.4-10.4) Prothrombin Time 27.4 SECONDS (9.0-12.0) Prothromb Time International Ratio 2.7 (0.9-1.1) Activated Partial Thromboplast Time 45.5 SECONDS (21.0-31.0) Partial Thromboplastin Ratio 1.8 Anion Gap 6.0 mmol/L (3-11) Est Creatinine Clear Calc Drug Dose 92.7 ml/min Estimated GFR () 125.3 Estimated GFR (Non- 108.1 BUN/Creatinine Ratio 19.3 (10-20) Calcium Level 8.8 mg/dl (8.5-10.1) Total Bilirubin 0.6 mg/dl (0.2-1) Aspartate Amino Transf (AST/SGOT) 16 U/L (15-37) Alanine Aminotransferase (ALT/SGPT) 32 U/L (12-78) Alkaline Phosphatase 56 U/L (45-117) Total Creatine Kinase 64 U/L (26-192) Creatine Kinase MB < 0.5 ng/ml (0.5-3.6) Creatine Kinase MB Ratio (0-3.0) Total Protein 7.9 gm/dl (6.4-8.2) Albumin 4.1 gm/dl (3.4-5.0) Globulin 3.8 gm/dl (2.5-4.0) Albumin/Globulin Ratio 1.1 (0.9-2) Medications Administered Medications (Trade) Dose Ordered Sig/Zohra Route Start Time Stop Time Status Last Admin Dose Admin Pantoprazole Sodium 40 mg/ Syringe 10 ml @ 5 mls/min NOW ONCE IV 01/22/17 12:15 01/22/17 12:16 DC 01/22/17 12:18 5 MLS/MIN Lidocaine HCl (Viscous Lidocaine 2% Soln) 10 ml NOW STAT PO 01/22/17 12:03 01/22/17 12:06 DC 01/22/17 12:17 10 ML Al Hydroxide/Mg Hydroxide (Maalox Susp) 30 ml NOW STAT PO 01/22/17 12:03 01/22/17 12:06 DC 01/22/17 12:16 30 ML ED Course The patient was evaluated. The patient's EMR medication list were reviewed. IV access was obtained. CBC and differential, complete metabolic profile was ordered. Coags were ordered. The patient's INR was 1.8 which is slightly low for her. Her PTT was elevated at 45.5 but it was 75.2 on December 09. Therefore it is going down. The patient's hemoglobin today was 13.6 which is down from 14.0. Hematocrit was 40.3 down from 41.9. I spoke with Dr. Aaron about the patient. He states since her hemoglobin and hematocrit have not dropped more than 2 points and her INR is not high she can follow up closely with her bottle filler on Monday or Monday. The remainder labs are unremarkable. The patient was given a GI cocktail and Protonix IV. The patient had some relief with these medications. The case was also discussed with Dr. moore who agreed with treatment plan. The patient was discharged home in stable condition. Medical Decision Differential diagnosis include GI bleed, bleeding from gastric biopsies, elevated INR Most likely the blood in her stool was coming from the biopsy but if this should worsen she will need to get admitted for closer follow-up. Impression Primary Impression: Stool guaiac positive Additional Impression: Epigastric pain Departure Information Dispostion Home / Self-Care Condition GOOD Referrals Pro,Martín Archibald M.D. (PCP) Forms Call Back Authorization, HOME CARE DOCUMENTATION FORM, IMPORTANT VISIT INFORMATION Patient Instructions My [facility] Additional Instructions Try taking Maalox [id number] but do not take it for at least 1 hour prior to taking her Coumadin. He may take Zantac 150 mg at bedtime. Call gastroenterology first thing tomorrow morning for follow-up appointment tomorrow or Monday. If you notice any abnormal bruising, blood in your urine, persistent dark tarry stools, return to ER immediately. Problem Qualifiers
[2017-01-22 13:20] VITALS: BP 120/84; PULSE 96; TEMP 36.8; O2SAT 100
== END 2017-01-22 13:21 | disposition home or self-care (01) ==
LOC: C.EDB 11:03 → C.EDC 13:21
DX: R19.5 Other fecal abnormalities (principal); R10.13 Epigastric pain; Z86.711 Personal history of pulmonary embolism; Z98.890 Other specified postprocedural states; Z79.01 Long term (current) use of anticoagulants

== ENCOUNTER → 2017-01-24 | Outpatient (CLI) | payer BC ==
[~2017-01-24] MED LIST changes: -ONDA4TAB65 PO
[2017-01-24 18:20] LABS: URINE APPEARANCE CLEAR (CLEAR); URINE BILIRUBIN NEG (NEG); URINE COLOR YELLOW; URINE NITRITE NEG (NEG); URINE PH 5.5 (4.5-7.5); URINE SPECIFIC GRAVITY 1.016 (1.000-1.030); UROBILINOGEN NEG (NEG)
[2017-01-24 18:32] LABS: MANUAL MICROSCOPIC REQUIRED? NO; REVIEW REQ? NO
== END | disposition home or self-care (01) ==
LOC: C.LAB 17:35
PROVIDERS: ATTEND Internal Medicine
DX: R39.9 Unspecified symptoms and signs involving the genitourinary system (principal)

== ENCOUNTER → 2017-01-25 | Outpatient (CLI) | payer BC ==
[~2017-01-25] MED LIST changes: +PRLSR20 PO
[2017-01-25 14:48] LABS: BASO ABS # 0.06 K/uL (0-0.2); COMPLETE YES; EOS % 0.5 %; IG% 0.2 %; LYMPH % 38.2 %; LYMPH ABS # 2.19 K/uL (1.2-3.4); MEAN CELL VOLUME 93.4 fL (80-100); MEAN CORPUSCULAR HEMOGLOBIN 31.4 pg (25-34); MEAN CORPUSCULAR HGB CONC 33.7 g/dl (32-36); MEAN PLATELET VOLUME 9.2 fL (7.4-10.4); MONO % 6.5 %; NEUT % 53.6 %; PLATELET COUNT 264 K/uL (130-400); RED BLOOD COUNT 4.07 M/uL (4.2-5.4); WHITE BLOOD COUNT 5.73 K/uL (4.8-10.8)
[2017-01-25 15:05] LABS: ALT/SGPT 34 U/L (12-78); AST/SGOT 15 U/L (15-37); BLOOD UREA NITROGEN 10 mg/dl (7-18); BUN/CREATININE RATIO 17.7 (10-20); CALCIUM 9.1 mg/dl (8.5-10.1); CARBON DIOXIDE 28 mmol/L (21-32); CHLORIDE 103 mmol/L (98-107); CREATININE 0.55 mg/dl (0.60-1.20); GLUCOSE 87 mg/dl (70-99); POTASSIUM 3.5 mmol/L (3.5-5.1); SODIUM 137 mmol/L (136-145)
[2017-01-25 15:08] LABS: ALKALINE PHOSPHATASE 59 U/L (45-117)
== END | disposition home or self-care (01) ==
LOC: C.LAB1850 12:38
PROVIDERS: ATTEND Nurse Practitioner Adult Health
DX: K92.1 Melena (principal); R14.0 Abdominal distension (gaseous); K80.20 Calculus of gallbladder without cholecystitis without obstruction

== ENCOUNTER → 2017-02-01 | Outpatient (CLI) | payer BC ==
[~2017-02-01] MED LIST changes: +DICY20TA35 PO
== END | disposition home or self-care (01) ==
LOC: C.LAB1850 08:12
PROVIDERS: ATTEND Obstetrics & Gynecology
DX: N83.209 Unspecified ovarian cyst, unspecified side (principal)

== ENCOUNTER → 2017-03-20 | Outpatient (CLI) | payer OTHER ==
[~2017-03-20] MED LIST changes: +MISCCAP80 PO; -PRLSR20 PO; +SINCALIDE INJ 1.1 MCG in SODIUM CHLORIDE 0.9% 100ML 100 ML IV ONE
--- NOTE | 2017-03-20 12:26 | DIAGNOSTIC IMAGING REPORT ---
NUCLEAR HEPATOBILIARY SCAN WITH EJECTION FRACTION IMAGING CLINICAL HISTORY: Cholelithiasis. COMPARISON STUDY: MRCP dated 01/16/2017. TECHNIQUE: Dynamic images of the liver and anterior abdomen were obtained every 5 minutes for a total of 60 minutes following the IV administration of 5.4mCi of technetium 99m Choletec. 1.1 mcg of sincalide was then injected with additional images acquired every 5 minutes for 45 minutes to calculate the gallbladder ejection fraction. FINDINGS: The hepatobiliary scan shows prompt and homogeneous hepatic uptake. There is visualized activity within the intra and extrahepatic biliary tree at 10 minutes, and within the gallbladder at 15 minutes. There is normal biliary to bowel transit, with small bowel visualized by 45 minutes. On the sincalide imaging, the gallbladder ejection fraction was measured at 34%. IMPRESSION: 1. Unremarkable nuclear hepatobiliary scan. There is no scintigraphic evidence of cholecystitis. 2. The gallbladder ejection fraction measured 34%. This is likely low normal (normal is 35% or greater). Electronically signed by: Samson Condon M.D. 03/20/2017 12:25 PM Dictated Date/Time: 03/20/2017 12:23 PM
== END | disposition home or self-care (01) ==
LOC: C.NUCL 10:07
PROVIDERS: ATTEND Internal Medicine
DX: K80.20 Calculus of gallbladder without cholecystitis without obstruction (principal)

== ENCOUNTER 2017-04-09 09:13 | Inpatient (IN) | payer OTHER ==
[2017-03-30 12:28] VITALS: BMI 22.0
--- NOTE | 2017-03-30 13:05 | PAT Medication Instructions ---
Service Date Mar 30, 2017. Current Home Medication List Dicyclomine Hcl (Dicyclomine Hcl), 1 TAB PO TID PRN for Pain Lorazepam (Ativan), 0.5 MG PO BID PRN for Anxiety Probiotic Product (Probiotic), 1 CAP PO QAM Warfarin Sodium (Warfarin Sodium), 5 MG PO 6xweek Medication Instructions For Your Scheduled Surgery -Contact your prescriber ([facility]) for instructions for: Warfarin Sodium (Warfarin Sodium), 5 MG PO 6xweek - Hold the following medications the morning of surgery: Probiotic Product (Probiotic), 1 CAP PO QAM Dicyclomine Hcl (Dicyclomine Hcl), 1 TAB PO TID PRN for Pain - Take the following medications the morning of surgery with a sip of water: Lorazepam (Ativan), 0.5 MG PO BID PRN for Anxiety (if needed) - Take the following medications as scheduled the night before surgery: Lorazepam (Ativan), 0.5 MG PO BID PRN for Anxiety (if needed) Dicyclomine Hcl (Dicyclomine Hcl), 1 TAB PO TID PRN for Pain (if needed) If you have any questions please call us at [phone] or [phone] or [phone]
[2017-03-30 13:39] LABS: BASO % 0.7 %; BASO ABS # 0.04 K/uL (0-0.2); EOS % 0.7 %; EOS ABS # 0.04 K/uL (0-0.5); HEMATOCRIT 41.8 % (37-47); HEMOGLOBIN 14.4 g/dL (12.0-16.0); IG# 0.01 K/uL (0.00-0.02); LYMPH ABS # 2.28 K/uL (1.2-3.4); MEAN CELL VOLUME 89.9 fL (80-100); MEAN CORPUSCULAR HGB CONC 34.4 g/dl (32-36); MEAN PLATELET VOLUME 9.1 fL (7.4-10.4); MONO % 6.7 %; MONO ABS # 0.38 K/uL (0.11-0.59); NEUT % 51.7 %; NEUT ABS # 2.95 K/uL (1.4-6.5); PLATELET COUNT 233 K/uL (130-400); RED CELL DISTRIBUTION WIDTH CV 11.8 % (11.5-14.5); RED CELL DISTRIBUTION WIDTH SD 38.4 fL (36.4-46.3)
[2017-03-30 13:55] LABS: INR 2.4 (0.9-1.1)
[2017-03-30 14:36] LABS: PTT PATIENT 48.3 SECONDS (21.0-31.0)
[2017-03-30 16:17] LABS: ALBUMIN 3.9 gm/dl (3.4-5.0); ALT/SGPT 26 U/L (12-78); BLOOD UREA NITROGEN 14 mg/dl (7-18); CALCIUM 9.4 mg/dl (8.5-10.1); CARBON DIOXIDE 29 mmol/L (21-32); CREATININE 0.67 mg/dl (0.60-1.20); GLUCOSE 91 mg/dl (70-99); POTASSIUM 4.2 mmol/L (3.5-5.1); SODIUM 138 mmol/L (136-145)
[2017-03-30 16:20] LABS: ALKALINE PHOSPHATASE 72 U/L (45-117); AST/SGOT 16 U/L (15-37); TOTAL PROTEIN 8.1 gm/dl (6.4-8.2)
[~2017-04-09] VITALS: Ht 162.6 cm; Wt 57.4 kg
--- NOTE | 2017-04-09 08:07 | Medical Consult ---
History General Date of Service: Apr 09, 2017. Stated Complaint: Cyst Of Left Ovary, Cholelithiasis HPI The patient is a 42 year old female who presents to [facility] with complaints of Cyst Of Left Ovary, Cholelithiasis. The patient's primary care provider is Martín Allen M.D.. This pt presentes for surgical removal of ovarian teratoma and possible cholecystectomy as has had ruq symptoms, she has protein C deficiency and had a PE 11/29 while on ocp's. Since protein C pts have risk of warfarin skin necrosis and concern for thrombophillic state, was instructed to stop warfarin this week, bridge to lovenox and will be place on iv heparin pre op with detailed instructions to restart heparin and warfarin post op otherwise she has no complaints or problems Historian: patient, family Review of Systems Constitutional: reports: no symptoms, denies: chills, fever Eyes: denies: eye pain, tearing ENT: denies: ear pain Cardiovascular: denies: chest pain, chest pressure Respiratory: denies: cough, orthopnea, shortness of breath Gastrointestinal: denies: abdominal pain, constipation Genitourinary - Female: denies: dysuria, hematuria Musculoskeletal: denies: arthralgias, neck pain Integumentary: denies: rash, redness Neurologic: denies: headache, dizziness Psychiatric: denies: anxiety, depression Hematologic / Lymphatic: abnormal clotting, denies: adenopathy Past Medical History Past Medical History: high cholesterol, hypercoagulability, pulmonary embolism Family History Unobtainable family history due to adoption Social History Smoking Status: Never Smoker Marital status: Housing status: lives with significant other Occupational Status: employed History of MDRO History of MDRO: No Allergies Coded Allergies: Red Dye (Unverified Allergy, Severe, HEAD TO TOE HIVES AND ITCHING, ) Penicillins (Verified Allergy, Mild, hives and itching, 03/30/17) Amoxicillin (Verified Allergy, Unknown, hives and itching, 03/30/17) Rivaroxaban (Verified Allergy, Unknown, hives and itching, 03/30/17) Sulfa Drugs (Verified Allergy, Unknown, tingling skin, 03/30/17) Uncoded Allergies: dye in various drugs (Allergy, Intermediate, HIVES, 01/12/17) Apixaban 5 mg tab; Rivaroxaban 15 mg tab; Coumadin 2 mg tab ELIQUIS (Allergy, Unknown, hives and itching, 03/30/17) Current Medications Reported Home Medications Medications Dose Route/Sig Max Daily Dose Days Date Category Dose Instructions Coumadin (Warfarin Sodium) 10 Mg Tab 5 Mg PO [id number] 04/07/17 Reported Pt requires DYE-FREE 10mg tablet. Takes 5mg 6 x week ( generally holds q Monday) Lovenox (Enoxaparin Sodium) 60 Mg/0.6 Ml Inj 60 Mg SQ Q12H 04/04/17 Reported Dicyclomine Hcl 20 Mg Tab 1 Tab PO TID PRN 10 03/30/17 Reported Probiotic (Probiotic Product) 1 Cap Cap 1 Cap PO QAM 02/22/17 Reported Ativan (Lorazepam) 0.5 Mg Tab 0.5 Mg PO BID PRN 01/19/17 Reported Physical Physical Exam General Appearance: WELL-APPEARING, WD/WN, NO APPARENT DISTRESS Head: NORMOCEPHALIC, ATRAUMATIC Eyes: PERRLA, NO DISCHARGE, EOMI Neck: NO TENDERNESS, TRACHEA MIDLINE Respiratory: BREATH SOUNDS NORMAL, CLEAR TO AUSCULTATION, CLEAR TO PERCUSSION Cardiovasular: REGULAR RATE/RHYTHM, NORMAL S1S2 Abdomen: NON TENDER, NORMAL BOWEL SOUNDS Back: NORMAL INSPECTION, NO CVA TENDERNESS Upper Extremities: NO EDEMA, NO DEFORMITY Lower Extremities: NO EDEMA, NO DEFORMITY Neuro: ALERT, ORIENTED x 3 Psychiatric: NORMAL AFFECT, NO SUICIDAL IDEATION Impression Assessment and Plan 42 F with a history of Thrombophilia with protein C deficiency presents for oopherectomy and cholecystectomy. Much care is given to her Thrombophilia and she was given instuctions to stop outpt warfarin one week ago and begin bridging lovenox 4 days agon with no lovenox since the PM of 04/08. she is planned on arriving for IV heparin infusion on the day prior to surgery given she did have a PE and pulmonary infarction in the recent past. heparin gtt started upon admission
[~2017-04-09 09:13] MED LIST changes: +DICY20TA10 PO; -DICY20TA35 PO; +ENOX60IN SQ; -SINCALIDE INJ 1.1 MCG in SODIUM CHLORIDE 0.9% 100ML 100 ML IV ONE; -WARF-246 PO; +WARF10TA PO
[2017-04-09 10:16] LABS: BASO % 0.9 %; BASO ABS # 0.04 K/uL (0-0.2); EOS % 0.9 %; EOS ABS # 0.04 K/uL (0-0.5); HEMATOCRIT 41.1 % (37-47); HEMOGLOBIN 14.1 g/dL (12.0-16.0); LYMPH % 37.1 %; LYMPH ABS # 1.71 K/uL (1.2-3.4); MEAN CELL VOLUME 89.7 fL (80-100); MEAN CORPUSCULAR HEMOGLOBIN 30.8 pg (25-34); MEAN PLATELET VOLUME 9.1 fL (7.4-10.4); MONO % 9.3 %; MONO ABS # 0.43 K/uL (0.11-0.59); NEUT % 51.8 %; NEUT ABS # 2.39 K/uL (1.4-6.5); PLATELET COUNT 218 K/uL (130-400); RED CELL DISTRIBUTION WIDTH CV 11.6 % (11.5-14.5); RED CELL DISTRIBUTION WIDTH SD 37.8 fL (36.4-46.3); WHITE BLOOD COUNT 4.61 K/uL (4.8-10.8)
[2017-04-09 10:25] LABS: PTT PATIENT 31.2 SECONDS (21.0-31.0)
[2017-04-09 10:29] LABS: MEAN CORPUSCULAR HGB CONC 34.3 g/dl (32-36)
[2017-04-09 10:30] VITALS: BP 124/85; PULSE 92; TEMP 36.9; O2SAT 97; Ht 162.6 cm; Wt 57.4 kg
[2017-04-09] MEDS: HEPARIN 25,000 UNIT/500ML D5W 500 ML IV PRN ×3 (10:49→19:19)
[2017-04-09 11:30] VITALS: BP 109/72; PULSE 80; TEMP 37.1; O2SAT 99
[2017-04-09 15:15] VITALS: BP 108/75; PULSE 76; TEMP 36.8; O2SAT 99
[2017-04-09 17:10] LABS: PTT PATIENT 61.3 SECONDS (21.0-31.0)
[2017-04-09] MEDS ORDERED: SODIUM CHLORIDE 0.9% 1000ML 1,000 ML IV SCH (19:45)
[2017-04-09 20:30] VITALS: BP 121/78; PULSE 80; TEMP 37; O2SAT 99
[2017-04-09] MEDS ORDERED: NURSING VERBAL MED ORDER ONE (20:30)
[2017-04-09 23:55] VITALS: BP 116/66; PULSE 67; TEMP 36.4; O2SAT 100
[2017-04-10] VITALS (10 sets, daily range): BP systolic 109–135; BP diastolic 55–83; PULSE 70–90; TEMP 36.5–37.4; O2SAT 95–100
[2017-04-10] MEDS ORDERED: NURSING VERBAL MED ORDER ONE (00:01)
[2017-04-10 05:48] LABS: PTT PATIENT 35.7 SECONDS (21.0-31.0)
[2017-04-10] MEDS ORDERED: CLINDAMYCIN 600 MG/54 ML D5W IV SCH (06:00)
[2017-04-10] MEDS ORDERED: BUPIVACAINE 0.5 % 5 MG/1 ML MPF 30ML VIAL ONE (06:50)
[2017-04-10] MEDS ORDERED: PROPOFOL IV EMULSION 10 MG/ML 20 ML VIAL IV ONE (06:53)
[2017-04-10] MEDS ORDERED: ONDANSETRON INJ 2 MG/ML 2 ML VIAL ONE (06:53)
[2017-04-10] MEDS ORDERED: FENTANYL CITRATE INJ 50 MCG/1 ML 2 ML VIAL ONE (06:53)
[2017-04-10] MEDS ORDERED: SODIUM CHLORIDE 0.9% INJ 10 ML VIAL ONE (06:53)
[2017-04-10] MEDS ORDERED: DEXAMETHASONE SOD INJ 4 MG/ML VIAL ONE (06:53)
[2017-04-10] MEDS ORDERED: LIDOCAINE HCL 2% 2 ML VIAL (20MG/ML) ONE (06:53)
[2017-04-10] MEDS ORDERED: MIDAZOLAM HCL 1 MG/ML 2ML VIAL ONE (06:54)
[2017-04-10] MEDS ORDERED: HYDROmorphone INJ 2 MG/ML SYR/VIAL ONE (06:54)
--- NOTE | 2017-04-10 06:58 | History & Physical Bridge Note ---
H&P Re-Evaluation Bridge Note: I have examined the patient, reviewed the History & Physical and in the interval since the performance of the History & Physical I have noted the following changes of clinical significance: No changes noted
[2017-04-10] MEDS ORDERED: ROCURONIUM BROMIDE 10 MG/ML 5 ML VIAL IV ONE (08:28)
[2017-04-10] MEDS ORDERED: ACETAMINOPHEN 1000 MG/100 ML IV IV ONE (08:42)
[2017-04-10] MEDS ORDERED: SODIUM CHLORIDE 0.9% 1000ML 1,000 ML IV SCH ×2 (08:44)
--- NOTE | 2017-04-10 08:44 | [facility] Post Operative Brief Note ---
Immediate Operative Summary Operative Date Apr 10, 2017. Pre-Operative Diagnosis Left ovarian mass Post-Operative Diagnosis Left ovarian dermoid Procedure(s) Performed Laparoscopic LSO, Da Sharon asist Surgeon Martha World Renowned Chef And Restaurant Owner Surgeon(s) Rudy M3 Estimated Blood Loss 5ml Findings Consistent with Post-Op Diagnosis Specimens Left adnexa Drains None Anesthesia Type General Complication(s) none Disposition Accompanied Pt To Recover: no Disposition: Recovery Room / PACU
[2017-04-10] MEDS ORDERED: PROMETHAZINE HCL INJ 25 MG in SODIUM CHLORIDE 0.9% 50ML 50 ML IV PRN (08:45)
[2017-04-10] MEDS ORDERED: ONDANSETRON INJ 2 MG/ML 2 ML VIAL IV PRN ×2 (08:45→09:15)
[2017-04-10] MEDS ORDERED: OXYCODONE/ACETAMINOPHEN 5-325 TAB PO PRN (08:45)
[2017-04-10] MEDS ORDERED: EpHEDrine SULFATE INJ 50 MG/ML AMP IV PRN (09:15)
[2017-04-10] MEDS ORDERED: HYDROmorphone INJ 1 MG/ML SYR IV PRN (09:15)
[2017-04-10] MEDS ORDERED: MEPERIDINE HCL 25 MG/ML CARP IV PRN (09:15)
[2017-04-10] MEDS ORDERED: ATROPINE SULFATE 0.1 MG/ML 5ML SYR IV PRN (09:15)
[2017-04-10] MEDS ORDERED: LABETALOL HCL IV 5 MG/ML 20ML IV PRN (09:15)
--- NOTE | 2017-04-10 09:33 | [facility] Post Operative Brief Note ---
Immediate Operative Summary Operative Date Apr 10, 2017. Pre-Operative Diagnosis Left ovarian mass, cholelithiasis. Post-Operative Diagnosis Left ovarian dermoid, cholelithiasis. Procedure(s) Performed Laparoscopic left salpingo oophorectomy with use of DaVinci (Dr. Thomas), Laparoscopic cholecystectomy (Dr. Kelly) Surgeon Dr. Robin Fleming Veterinary Meat Inspector Surgeon(s) none. Estimated Blood Loss 15 ml Findings Consistent with Post-Op Diagnosis Specimens A: Left adenexa B: Gallbladder Complication(s) none
--- NOTE | 2017-04-10 09:48 | [facility] Operative Report ---
Operative Report Operative Date Apr 10, 2017. Pre-Operative Diagnosis Left ovarian mass, cholelithiasis. Post-Operative Diagnosis Left ovarian dermoid, cholelithiasis. Procedure(s) Performed Laparoscopic left salpingo oophorectomy with use of DaVinci (Dr. Thomas), Laparoscopic cholecystectomy (Dr. Kelly) Surgeon Dr. Robin Fleming Wire Frame Dipper Surgeon(s) none. Estimated Blood Loss 15 ml Specimens A: Left adenexa B: Gallbladder Drains None Complication(s) none Disposition no Recovery Room / PACU Description of Procedure This procedure was a combined operation with Dr. Thomas. Please see his operative note for the full report. The patient was already in the room intubated with access to the abdomen with insufflation and in yellowfin stirrups. Upon completion of Dr. Thomas's salpingo-oophorectomy I then scrubbed into the case. I was able to use all 3 of his existing ports and had to add 1 additional right upper quadrant 5 mm trocar. We placed the patient in reverse Trendelenburg position slightly air planed to the left. I was able to grasp the gallbladder and elevated it superiorly and laterally. Using a [place] dissector I was able to take down adhesions around the neck of the gallbladder and skeletonized first the cystic artery. I clipped it twice proximally once distally and transected it. I was then able to dissect the cystic duct and visualize its junction with the common duct. I placed 2 clips proximally 1 clip distally and transected using laparoscopic scissor. I then used electrocautery to remove the gallbladder from the gallbladder fossa. It was removed intact and placed into an Endo Catch bag. Several small bleeding points on the gallbladder fossa were controlled using electrocautery. Thorough irrigation was performed. At the end of the procedure there was adequate hemostasis and no evidence of any bile leaks. I then looked around the abdomen. A small amount of fluid was suctioned out of the pelvis. There was adequate hemostasis throughout the abdomen. We then withdrew all the trochars under direct vision. We removed the gallbladder as well and desufflated the abdomen. The fascia of the camera port was closed using 0 Vicryl in a figure-of -eight fashion. All the wounds were irrigated and closed using 4-0 Monocryl. Plain Marcaine was injected around the incisions for postoperative analgesia and skin glue used as a dressing. The patient was awaken extubated and transferred to recovery in stable condition I attest to the content of the Intraoperative Record and any orders documented therein. Any exceptions are noted below.
[2017-04-10] MEDS: FENTANYL CITRATE INJ 50 MCG/1 ML 2 ML VIAL IV PRN ×4 (09:50→10:05)
--- NOTE | 2017-04-10 09:50 | Medical Student: [facility] ---
Immediate Operative Summary Operative Date Apr 10, 2017. Pre-Operative Diagnosis left ovarian mass, cholelithiasis Post-Operative Diagnosis left ovarian dermoid, cholelithiasis Procedure(s) Performed laproscopic salpingo oophorectomy with DaVinci robot assist (Dr. Thomas) laproscopic cholecystectomy (Dr. Kelly) Surgeon Dr. Thomas, Dr. Kelly Metal Riveter Surgeon(s) Bobo Grant (MS3), Jana Mishra (MS3) Estimated Blood Loss 5ml for Dr. Thomas's part, 10ml for Dr. Kelly's part for total of 15ml Findings consistent with post-op diagnosis Specimens A: left ovary and left tube B: gallbladder Drains none Anesthesia general Complication(s) None Disposition Recovery Room / PACU
--- NOTE | 2017-04-10 10:47 | Anesthesiology Progress Note ---
Anesthesia Post Op Note Date & Time Apr 10, 2017 at 10:47 Vital Signs Pain Intensity: 5 Vital Signs Past 12 Hours Date Time Temp Pulse Resp B/P (MAP) Pulse Ox O2 Delivery O2 Flow Rate FiO2 04/10/17 10:20 36.3 82 14 126/78 100 Nasal Cannula 3 04/10/17 10:10 76 12 131/79 100 Nasal Cannula 3 04/10/17 10:00 73 12 123/78 100 Oxymask 3 04/10/17 09:50 77 12 122/77 100 Oxymask 3 04/10/17 09:42 36.1 83 12 122/83 100 Oxymask 5 04/10/17 02:30 36.8 70 16 109/55 (73) 98 Room Air 04/09/17 23:55 Room Air 04/09/17 23:55 36.4 67 16 116/66 (83) 100 Room Air Notes Mental Status: alert / awake / arousable, participated in evaluation Pt Amnestic to Procedure: Yes Nausea / Vomiting: adequately controlled Pain: adequately controlled Airway Patency, RR, SpO2: stable & adequate BP & HR: stable & adequate Hydration State: stable & adequate Anesthetic Complications: no major complications apparent
[2017-04-10] MEDS ORDERED: NEOSTIGMINE METHYLSULFATE 5 MG/5 ML SYR ONE (11:51)
[2017-04-10] MEDS ORDERED: GLYCOPYRROLATE INJ 0.2 MG/ML VIAL ONE (11:51)
--- NOTE | 2017-04-10 11:57 | OPERATIVE REPORT ---
DATE OF OPERATION: 04/10/2017 PREOPERATIVE DIAGNOSIS: Left ovarian mass. POSTOPERATIVE DIAGNOSIS: Left ovarian mass, likely dermoid. PROCEDURE: Da Sharon robotically assisted laparoscopic LSO. SURGEON: Dr. Thomas. SALES DEVELOPMENT MANAGER: Bobo Grant, third year medical student. ESTIMATED BLOOD LOSS: 5 mL FINDINGS: Consistent with postop diagnosis. SPECIMENS: Left adnexa. DRAINS: None. ANESTHETIC: General. COMPLICATIONS: None. DISPOSITION: Recovery room. It should be noted clinically that the patient has a clotting disorder and was on heparin up to 5 hours prior to the procedure, this was then stopped. Heparin will be started again by the medical team afterward. The procedure was begun by positioning the patient in Trendelenburg position. Lopez catheter placed into her bladder and cervical acorn manipulating device attached to the cervix attached to an Allis. Gloves changed and a subumbilical incision made with the scalpel. Using direct Shell entry technique, we cut through the fascia, split the rectus muscles and entered the peritoneal cavity. Blunt-tipped Shell trocar then placed. Balloon inflated to secure the port. A 10-mm laparoscope used to visualize and then abdomen insufflated with CO2 gas. FINDINGS: Upper abdomen normal. Deep Trendelenburg position then obtained. I was able to visualize the pelvis. With the exception of the left adnexa, the pelvis was normal. There was a simple cyst on the right ovary. Bilateral tubes and bladder flap and cul-de-sac were normal. The left ovary had the appearance of a dermoid, was smooth and benign and was enlarged. Two ports made on the left and right side under direct visualization, these were inserted, and then robot docked. Arm #1 was monopolar santo and arm #2 bipolar [place]. The procedure was begun by identifying the left ureter and then taking steps to find the infundibulopelvic ligament. Once we isolated the IP ligament and we were well away from the left ureter, we coagulated the IP ligament with the bipolar [place]. This was then cut with the monopolar santo. Same process with the uteroovarian anastomosis on the distal side of the ovary. Ovary was then removed from its lateral sidewall attachments, well away from the ureter, and was placed in the cul-de-sac for safe keeping. Robot undocked and instruments removed. We then put a 5-mm scope through one of the robotic ports, 10 mm bag through the umbilical port, and then using a grasper, placed the specimen intact into the bag. The bag was then withdrawn up into the umbilical incision and then opening the bag pulled through. We drained the cyst by entering with Metzenbaums and then sebaceous-type fluid was drained carefully. We wrapped a lap pad around the incision to prevent any leakage into the incision. Then drained and this was suctioned, and because of this reduction in size of the mass, we were able to pull the bag intact through the umbilical incision. After generous irrigation and suction, we did review the pelvis. Hemostasis was excellent. Ovary was sent off to pathology and the case was handed over to Dr. Kelly, general surgery, who was then going to proceed to remove her gallbladder. I attest to the content of the Intraoperative Record and any orders documented therein. Any exception s are noted below.
--- NOTE | 2017-04-10 14:21 | Hospitalist Progress Note ---
Hospitalist Progress Note Date of Service Apr 10, 2017. Subjective Pt evaluation today including: conversation w/ patient, conversation w/ family , physical exam, chart review, lab review, review of studies, review of inpatient medication list Patient seen and evaluated. She is S/P Lparoscopic LSO and Monique. Reporting pain is well controlled at this time. Some nausea without emesis. Surgical incisions well approximated with some minimal bleeding at umbilicus. No CP/pleuritic pain or SOB Follows with Dr. Rojo and Dr. Hastings as outpatient. Constitutional: No fever, No chills Respiratory: No cough, No shortness of breath Cardiovascular: No chest pain Abdomen: + pain (minimal burning sensation at incisions), + nausea, No vomiting, No diarrhea, No constipation Musculoskeletal: No swelling, No calf pain Female : No dysuria Skin: No rash Medications Current Inpatient Medications Medications (Trade) Dose Ordered Sig/Zohra Route Start Time Stop Time Status Last Admin Dose Admin Clindamycin Phosphate 54 ml @ 100 mls/hr PREOP IV 04/10/17 06:00 04/10/17 18:00 04/10/17 07:30 100 MLS/HR Heparin Sodium/ Dextrose 500 ml @ 20 mls/hr Q24H PRN IV 04/09/17 10:45 05/09/17 10:44 04/09/17 19:19 20 MLS/HR Sodium Chloride 1,000 ml @ 125 mls/hr Q8H IV 04/10/17 08:44 04/11/17 08:43 Ondansetron HCl (Zofran Inj) 4 mg Q6H PRN IV 04/10/17 08:45 04/11/17 08:44 Oxycodone/ Acetaminophen (Percocet 5-325mg Tab) 1 tab Q4H PRN PO 04/10/17 08:45 04/11/17 08:44 Oxycodone/ Acetaminophen (Percocet 5-325mg Tab) 2 tab Q4H PRN PO 04/10/17 08:45 04/11/17 08:44 Promethazine HCl 25 mg/Sodium Chloride 51 ml @ 204 mls/hr Q4H PRN IV 04/10/17 08:45 04/11/17 08:44 Fentanyl Citrate (Fentanyl Inj) 50 mcg Q5M PRN IV 04/10/17 09:15 04/11/17 09:14 04/10/17 10:05 50 MCG Hydromorphone HCl (Dilaudid Inj) 0.5 mg Q5M PRN IV 04/10/17 09:15 04/11/17 09:14 Meperidine HCl (Demerol Inj) 25 mg Q5M PRN IV 04/10/17 09:15 04/11/17 09:14 Ondansetron HCl (Zofran Inj) 4 mg ONE PRN IV 04/10/17 09:15 04/11/17 09:14 04/10/17 09:50 4 MG Labetalol HCl (Normodyne IV) 5 mg Q5M PRN IV 04/10/17 09:15 04/11/17 09:14 Ephedrine Sulfate (EpHEDrine SULFATE INJ) 5 mg Q5M PRN IV 04/10/17 09:15 04/11/17 09:14 Atropine Sulfate (Atropine Sulfate 0.1mg/ml Inj) 0.5 mg Q1M PRN IV 04/10/17 09:15 04/11/17 09:14 Objective Vital Signs Date Time Temp Pulse Resp B/P (MAP) Pulse Ox O2 Delivery O2 Flow Rate FiO2 04/10/17 13:40 36.8 90 16 115/73 (87) 98 Room Air 04/10/17 13:25 97 Room Air 04/10/17 12:34 36.9 90 15 115/71 (86) 95 Room Air 04/10/17 11:37 36.9 80 16 116/76 (89) 97 Room Air 04/10/17 11:15 36.5 83 14 116/71 (86) 97 Room Air 04/10/17 10:35 Room Air 04/10/17 10:35 36.8 80 16 125/78 (94) 99 Room Air 04/10/17 10:35 99 Room Air 04/10/17 10:20 36.3 82 14 126/78 100 Nasal Cannula 3 04/10/17 10:10 76 12 131/79 100 Nasal Cannula 3 04/10/17 10:00 73 12 123/78 100 Oxymask 3 04/10/17 09:50 77 12 122/77 100 Oxymask 3 04/10/17 09:42 36.1 83 12 122/83 100 Oxymask 5 04/10/17 02:30 36.8 70 16 109/55 (73) 98 Room Air 04/09/17 23:55 Room Air 04/09/17 23:55 36.4 67 16 116/66 (83) 100 Room Air 04/09/17 20:30 99 Room Air 04/09/17 20:30 37.0 80 16 121/78 (92) 99 Room Air 04/09/17 15:15 Room Air 04/09/17 15:15 36.8 76 18 108/75 (86) 99 Room Air Physical Exam General Appearance: WD/WN, no apparent distress Eyes: sclerae normal ENT: hearing grossly normal Neck: supple, no JVD, trachea midline Respiratory/Chest: lungs clear, normal breath sounds, no respiratory distress, no accessory muscle use Cardiovascular: regular rate, rhythm, no gallop, no murmur Abdomen: normal bowel sounds, + pertinent finding (multiple well-approximated surgical incisions) Extremities: no pedal edema Laboratory Results Last 24 Hours Test 04/09/17 16:31 04/10/17 05:18 04/10/17 07:31 Activated Partial Thromboplast Time 61.3 SECONDS 35.7 SECONDS Partial Thromboplastin Ratio 2.4 1.4 Prothrombin Time 10.3 SECONDS Prothromb Time International Ratio 1.0 Assessment and Plan 42 F with a history of Thrombophilia with protein C deficiency presents for oopherectomy and cholecystectomy. S/P LSO and Monique: - Management per Gyne and Gen Surg Thrombophilia/Protein C Deficiency/PE History: - Plan to incorporate heparin gtt later this evening and will hold Coumadin poss. next 2-3 days and will need bridge on D/C - Follows with Dr. Hastings and Dr. Rojo - appreciate their recommendations Continued [facility] stay due to: multiple IV medications needed Discharge planning: home
--- NOTE | 2017-04-10 15:12 | Medical Consult ---
Consultation Note Date of Service Apr 10, 2017. Consultation Note I have been asked to provide input on the anticoagulation management of the patient, who is followed by our anticoagulation clinic. 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 She has been followed in our clinic on coumadin therapy (her doses are made with 10 mg white pills as she is allergic to the dyes in a number of different medications). Her INRs have been stable and therapeutic. Prior to this surgery, she was bridged with lovenox 60 mg BID (1 mg/kg BID) and transitioned to IV heparin, which was discontinued 5 hours prior to her surgery. By report, both surgeries went well with minimal blood loss. Her post op course, according to the chart, has been unremarkable. Following conversation with her surgeon, Dr. Thomas, he would be comfortable beginning IV heparin therapy at 12 hours post op. He informs me that Dr. Kelly is in agreement with this plan. Katya should be started on the low dose weight based nomogram without a bolus. IV heparin was selected in place of therapeutic lovenox because of the reversibility and the short half life. Provided there are no issues overnight, she may go home tomorrow on lovenox 60 mg BID, with the first dose of lovenox no sooner than 24 hours post op and 2 hours after IV heparin is discontinued. She has instructions to begin her coumadin therapy, 5 mg without loading doses, beginning Monday, She has detailed instructions of this, which have provided by the clinic. She has a follow up appointment in the [facility] clinic on MondayApril 17. This plan has been communicated verbally to Dr. Avila, who is managing the patients inpatient therapy. I am available by phone should any issues arise.
[2017-04-10] MEDS ORDERED: WARFARIN SOD 10 MG TAB PO SCH (16:00)
[2017-04-10] MEDS: OXYCODONE/ACETAMINOPHEN 5-325 TAB PO PRN ×2 (19:15→23:30)
[2017-04-10] MEDS ORDERED: HEPARIN IV LOW DOSE NO BOLUS SCH (21:00)
[2017-04-10 22:13] LABS: BASO % 0.1 %; BASO ABS # 0.01 K/uL (0-0.2); HEMATOCRIT 37.6 % (37-47); HEMOGLOBIN 13.2 g/dL (12.0-16.0); IG# 0.03 K/uL (0.00-0.02); LYMPH % 10.8 %; LYMPH ABS # 1.21 K/uL (1.2-3.4); MEAN CELL VOLUME 88.3 fL (80-100); MONO % 8.5 %; MONO ABS # 0.96 K/uL (0.11-0.59); NEUT % 80.3 %; NEUT ABS # 9.04 K/uL (1.4-6.5); PLATELET COUNT 192 K/uL (130-400); RED CELL DISTRIBUTION WIDTH CV 11.6 % (11.5-14.5); RED CELL DISTRIBUTION WIDTH SD 37.2 fL (36.4-46.3); WHITE BLOOD COUNT 11.25 K/uL (4.8-10.8)
[2017-04-10 22:14] LABS: MEAN CORPUSCULAR HGB CONC 35.1 g/dl (32-36)
[2017-04-10] MEDS: HEPARIN 25,000 UNIT/500ML D5W 500 ML IV PRN ×2 (22:25→23:17)
[2017-04-10 22:26] LABS: PTT PATIENT 25.5 SECONDS (21.0-31.0)
[2017-04-11] MEDS: OXYCODONE/ACETAMINOPHEN 5-325 TAB PO PRN ×2 (03:22→08:15)
[2017-04-11 03:25] VITALS: BP 96/64; PULSE 69; TEMP 36.5; O2SAT 99
[2017-04-11 04:30] LABS: HEMATOCRIT 35.9 % (37-47); HEMOGLOBIN 12.3 g/dL (12.0-16.0); MEAN CELL VOLUME 89.3 fL (80-100); MEAN CORPUSCULAR HEMOGLOBIN 30.6 pg (25-34); MEAN CORPUSCULAR HGB CONC 34.3 g/dl (32-36); MEAN PLATELET VOLUME 9.1 fL (7.4-10.4); PLATELET COUNT 183 K/uL (130-400); RED CELL DISTRIBUTION WIDTH CV 11.7 % (11.5-14.5); RED CELL DISTRIBUTION WIDTH SD 37.9 fL (36.4-46.3); WHITE BLOOD COUNT 10.75 K/uL (4.8-10.8)
[2017-04-11 04:44] LABS: PTT PATIENT 33.4 SECONDS (21.0-31.0)
[2017-04-11] MEDS ORDERED: HEPARIN IV BOLUS 4,000 UNIT in SYRINGE 0 ML IV ONE (05:15)
[2017-04-11] MEDS: HEPARIN 25,000 UNIT/500ML D5W 500 ML IV PRN ×2 (05:25→07:13)
[2017-04-11] MEDS ORDERED: OXYC-57 PO (07:15)
--- NOTE | 2017-04-11 07:17 | Discharge Instructions ---
Discharge Instructions Date of Service Apr 11, 2017. Admission Reason for Admission: Cyst Of Left Ovary, Cholelithiasis Discharge Discharge Diagnosis / Problem: left ovarian cyst, Gallbladder Discharge Goals Goal(s): Routine recovery after surgery Activity Recommendations Activity Limitations: per Instructions/Follow-up section . Instructions / Follow-Up Instructions / Follow-Up ACTIVITY RECOMMENDATIONS: * Rest the first 2-3 days. You should be back to your normal activity levels by day 3. * No heavy lifting for 2 weeks. * No intercourse, tampons or douching for 1-2 weeks. * You may shower the next day. * Do not drive anytime that you are taking narcotic pain medicines. RETURN TO SCHOOL/WORK: * May return to school or work after 2-3 days. DIET: Nausea may occur in the immediate post-operative period. If so, take clear liquids such as tea, bouillon, apple juice until all nausea has subsided, then resume usual diet. MEDICATIONS: Resume previous medications unless instructed otherwise by your surgeon. Ibuprofen 200mg 2-3 tablets every 4-6 hours as needed -- OR -- Aleve 2 tablets every 8-12 hours as needed for post-operative discomfort Medications are over the counter. Tylenol may be used if above medications are contraindicated or not preferred. Medication should be taken with food or milk. Do not take on an empty stomach. SPECIAL CARE INSTRUCTIONS: * Check temperature twice daily for one week. report any elevation over 101 degrees. * You may experience some vagina spotting and/or bleeding. This is normal for 1 -2 weeks and should not be heavier than a normal period. If it is unusual in amount, call your physician. * Post-operative discomfort may consist of a sore throat, a "bloated" feeling and pain in the shoulders. these are normal symptoms, which usually only last for 2-3 days. * Remove band-aids tomorrow and shower. There is no need to replace band-aids unless there is drainage or discomfort. FOLLOW UP VISIT: Call your doctor's office for a post-operative 2 week visit if not already scheduled. Current Hospital Diet Patient's current hospital diet: Regular Diet Discharge Diet Recommended Diet: Regular Diet Procedures Procedures Performed: Laparoscopic left salpingo oophorectomy with use of DaVinci (Dr. Thomas), Laparoscopic cholecystectomy (Dr. Kelly) Pending Studies Studies pending at discharge: no Medical Emergencies . Who to Call and When: Medical Emergencies: If at any time you feel your situation is an emergency, please call 911 immediately. . Non-Emergent Contact Non-Emergency issues call your: Machinist General, Surgeon . . "Provider Documentation" section prepared by Eldon Thomas. . VTE Core Measure Inpt VTE Proph given/why not?: Unfractionated heparin SQ, Warfarin (Coumadin), T.E.Gaagndeep Stockings, SCD's
--- NOTE | 2017-04-11 07:27 | Progress Note ---
Progress Note Date of Service Apr 11, 2017. Progress Note Postop day #1 from laparoscopic left salpingo-oophorectomy patient additionally had laparoscopic cholecystectomy Patient feels well is ambulating tolerating an oral diet has no extremity pain no shortness of breath no bleeding Physical exam vital signs are stable she is afebrile chest exam clear. Cardiovascular exam normal rate and rhythm. Abdomen soft nontender incisions clean dry and intact no distention Extremity exam negative Hemoglobin stable Impression and plan meets surgical discharge criteria reviewed instructions Percocet We'll await the medical and hematology teams for full clearance regarding anticoagulation JFD
[2017-04-11 08:15] VITALS: BP 100/68; PULSE 90; TEMP 37.2; O2SAT 99
--- NOTE | 2017-04-11 11:14 | Discharge Instructions ---
Discharge Instructions Date of Service Apr 11, 2017. Admission Reason for Admission: Cyst Of Left Ovary, Cholelithiasis Discharge Discharge Diagnosis / Problem: Thrombophillia Discharge Goals Goal(s): Decrease discomfort, Improve function, Increase independence Activity Recommendations Activity Limitations: per Instructions/Follow-up section (per your surgeons) . Instructions / Follow-Up Instructions / Follow-Up Thrombophilia/Protein C Deficiency/PE History: - Please follow the directions given by Dr. Rojo - Your heparin drip was discontinued at 1100 AM. Therefore, do not take your first Lovenox injection until at least 1 PM on 04/11. - You may begin your Coumadin therapy of 5 mg beginning on Wednesday 04/12. You have a follow-up appointment with the Coumadin clinic for MondayApril 17 to have your blood work checked. - Please monitor for any findings of bleeding. You may have some mild bleeding at incision sites and should continue to improve daily. Recommend to follow surgeons recommendations for any activity restrictions. Current Hospital Diet Patient's current hospital diet: Regular Diet Discharge Diet Recommended Diet: Regular Diet Procedures Procedures Performed: Laparoscopic left salpingo oophorectomy with use of DaVinci (Dr. Thomas), Laparoscopic cholecystectomy (Dr. Kelly) Pending Studies Studies pending at discharge: no Medical Emergencies . Who to Call and When: Medical Emergencies: If at any time you feel your situation is an emergency, please call 911 immediately. . Non-Emergent Contact Non-Emergency issues call your: Primary Care Provider Call Non-Emergent contact if: you have a fever, your pain is concerning you, you have any medication questions . . "Provider Documentation" section prepared by Nafisa Salgado. . VTE Core Measure Inpt VTE Proph given/why not?: Unfractionated heparin SQ, Warfarin (Coumadin), T.E.D. Stockings, SCD's
--- NOTE | 2017-04-11 11:38 | Anesthesiology Progress Note ---
Anesthesia Post Op Note Date & Time Apr 11, 2017 at 11:36 Vital Signs Pain Intensity: 6.0 Vital Signs Past 12 Hours Date Time Temp Pulse Resp B/P (MAP) Pulse Ox O2 Delivery O2 Flow Rate FiO2 04/11/17 08:15 37.2 90 20 100/68 (79) 99 Room Air 04/11/17 08:15 99 Room Air 04/11/17 03:25 36.5 69 18 96/64 (75) 99 Room Air Notes Mental Status: alert / awake / arousable, participated in evaluation Pt Amnestic to Procedure: Yes Nausea / Vomiting: adequately controlled Pain: adequately controlled Airway Patency, RR, SpO2: stable & adequate BP & HR: stable & adequate Hydration State: stable & adequate Anesthetic Complications: no major complications apparent Awake, alert. C/O nausea adequately controlled with medication post op. No other c/o.
--- NOTE | 2017-04-11 11:45 | Surgery Progress Note ---
Surgery Progress Note Date of Service Apr 11, 2017. Subjective Post OP Day: 1 + feeling well kylah diet. pain controlled Objective Vital Signs: Date Time Temp Pulse Resp B/P (MAP) Pulse Ox O2 Delivery O2 Flow Rate FiO2 04/11/17 08:15 37.2 90 20 100/68 (79) 99 Room Air 04/11/17 08:15 99 Room Air 04/11/17 03:25 36.5 69 18 96/64 (75) 99 Room Air 04/10/17 23:30 99 Room Air 04/10/17 23:30 36.9 84 18 110/71 (84) 99 Room Air 04/10/17 19:30 37.3 85 16 125/78 (94) 100 Room Air 04/10/17 16:00 37.4 89 18 135/83 (100) 100 Room Air 04/10/17 16:00 100 Room Air 04/10/17 13:40 36.8 90 16 115/73 (87) 98 Room Air 04/10/17 13:25 97 Room Air 04/10/17 12:34 36.9 90 15 115/71 (86) 95 Room Air General Appearance: no apparent distress Respiratory/Chest: normal breath sounds, no respiratory distress Abdomen: non distended, soft Incision(s): clean, dry, intact, no erythema Laboratory Results: Results Past 24 Hours Test 04/10/17 22:04 04/11/17 04:05 04/11/17 10:41 Range/Units White Blood Count 11.25 10.75 4.8-10.8 K/uL Red Blood Count 4.26 4.02 4.2-5.4 M/uL Hemoglobin 13.2 12.3 12.0-16.0 g/dL Hematocrit 37.6 35.9 37-47 % Mean Corpuscular Volume 88.3 89.3 80-100 fL Mean Corpuscular Hemoglobin 31.0 30.6 25-34 pg Mean Corpuscular Hemoglobin Concent 35.1 34.3 32-36 g/dl Platelet Count 192 183 130-400 K/uL Mean Platelet Volume 9.0 9.1 7.4-10.4 fL Neutrophils (%) (Auto) 80.3 % Lymphocytes (%) (Auto) 10.8 % Monocytes (%) (Auto) 8.5 % Eosinophils (%) (Auto) 0.0 % Basophils (%) (Auto) 0.1 % Neutrophils # (Auto) 9.04 1.4-6.5 K/uL Lymphocytes # (Auto) 1.21 1.2-3.4 K/uL Monocytes # (Auto) 0.96 0.11-0.59 K/uL Eosinophils # (Auto) 0.00 0-0.5 K/uL Basophils # (Auto) 0.01 0-0.2 K/uL RDW Standard Deviation 37.2 37.9 36.4-46.3 fL RDW Coefficient of Variation 11.6 11.7 11.5-14.5 % Immature Granulocyte % (Auto) 0.3 % Immature Granulocyte # (Auto) 0.03 0.00-0.02 K/uL Prothrombin Time 10.5 9.0-12.0 SECONDS Prothromb Time International Ratio 1.0 0.9-1.1 Activated Partial Thromboplast Time 25.5 33.4 21.0-31.0 SECONDS Partial Thromboplastin Ratio 1.0 1.3 Assessment & Plan pod 1 doing well. ok from standpoint for d/c medicine/hematology gave anticoagulation instructions f/u with me in 2 weeks.
[2017-04-11 11:47] LABS: PTT PATIENT 69.9 SECONDS (21.0-31.0)
[2017-04-11 12:01] VITALS: BP 100/68; PULSE 90; TEMP 37.2; O2SAT 99
--- NOTE | 2017-04-11 15:53 | Hospitalist Progress Note ---
Hospitalist Progress Note Date of Service Apr 11, 2017. Subjective Pt evaluation today including: conversation w/ patient, conversation w/ family , physical exam, chart review, lab review, review of studies, review of inpatient medication list Patient seen and evaluated. No acute events overnight. Tolerating diet and reporting pain is under control. No further nausea today. Ready to go home. Heparin gtt D/Cd at approx. 11 AM. D/C instructions given per recommendations from Dr. Rojo and will bridge Lovenox but first dose will be given at least 2 hours after gtt. Patient is a good historian/reliable and able to self-administer injections. She has enough Lovenox supplies at home. Constitutional: No fever, No chills Respiratory: No cough, No shortness of breath Cardiovascular: No chest pain Abdomen: + pain (minimal at incision sites), No nausea, No vomiting Female : No dysuria Heme: No abnormal bleeding/bruising Skin: No rash Objective Vital Signs Date Time Temp Pulse Resp B/P (MAP) Pulse Ox O2 Delivery O2 Flow Rate FiO2 04/11/17 12:01 37.2 90 20 99 Room Air 04/11/17 08:15 37.2 90 20 100/68 (79) 99 Room Air 04/11/17 08:15 99 Room Air 04/11/17 03:25 36.5 69 18 96/64 (75) 99 Room Air 04/10/17 23:30 99 Room Air 04/10/17 23:30 36.9 84 18 110/71 (84) 99 Room Air 04/10/17 19:30 37.3 85 16 125/78 (94) 100 Room Air 04/10/17 16:00 37.4 89 18 135/83 (100) 100 Room Air 04/10/17 16:00 100 Room Air Physical Exam General Appearance: WD/WN, no apparent distress Eyes: sclerae normal ENT: hearing grossly normal Neck: supple, no JVD, trachea midline Respiratory/Chest: lungs clear, normal breath sounds, no respiratory distress, no accessory muscle use Cardiovascular: regular rate, rhythm, no gallop, no murmur Abdomen: normal bowel sounds, + pertinent finding (surgical incision sites are well approximated and no drainage noted) Extremities: no pedal edema, no calf tenderness Neurologic/Psychiatric: alert, oriented x 3 Skin: normal color Laboratory Results Last 24 Hours Test 04/10/17 22:04 04/11/17 04:05 04/11/17 10:41 White Blood Count 11.25 K/uL 10.75 K/uL Red Blood Count 4.26 M/uL 4.02 M/uL Hemoglobin 13.2 g/dL 12.3 g/dL Hematocrit 37.6 % 35.9 % Mean Corpuscular Volume 88.3 fL 89.3 fL Mean Corpuscular Hemoglobin 31.0 pg 30.6 pg Mean Corpuscular Hemoglobin Concent 35.1 g/dl 34.3 g/dl Platelet Count 192 K/uL 183 K/uL Mean Platelet Volume 9.0 fL 9.1 fL Neutrophils (%) (Auto) 80.3 % Lymphocytes (%) (Auto) 10.8 % Monocytes (%) (Auto) 8.5 % Eosinophils (%) (Auto) 0.0 % Basophils (%) (Auto) 0.1 % Neutrophils # (Auto) 9.04 K/uL Lymphocytes # (Auto) 1.21 K/uL Monocytes # (Auto) 0.96 K/uL Eosinophils # (Auto) 0.00 K/uL Basophils # (Auto) 0.01 K/uL RDW Standard Deviation 37.2 fL 37.9 fL RDW Coefficient of Variation 11.6 % 11.7 % Immature Granulocyte % (Auto) 0.3 % Immature Granulocyte # (Auto) 0.03 K/uL Prothrombin Time 10.5 SECONDS Prothromb Time International Ratio 1.0 Activated Partial Thromboplast Time 25.5 SECONDS 33.4 SECONDS 69.9 SECONDS Partial Thromboplastin Ratio 1.0 1.3 2.7 Assessment and Plan 42 F with a history of Thrombophilia with protein C deficiency presents for oopherectomy and cholecystectomy. S/P LSO and Monique: - Management per Gyne and Gen Surg Thrombophilia/Protein C Deficiency/PE History: - Heparin gtt D/Cd and instructed to start Lovenox at least 2 hours after this time and patient will self-administer at home - reporting enough supplies - She will start Warfarin on Monday without loading dosing and F/U with Dr. Rojo on April 17 - Patient was discussed with nursing staff and cleared from medical standpoint for D/C Discharge planning: home
--- NOTE | 2017-04-14 12:02 | DISCHARGE SUMMARY ---
Katya was admitted on 04/09/2017. She required a combination surgery on 04/10/2017 for laparoscopic left oophorectomy by myself and a laparoscopic cholecystectomy by Dr. Kelly because of a clotting disorder. She was on Coumadin prior to that, was transitioned from Coumadin to Lovenox and then admitted in the hospital and started on IV heparin. Her transition was then to stop the heparin several hours prior to surgery and this was done and she then had surgery which was uneventful on the morning of 04/10/2017. This included laparoscopic left salpingo-oophorectomy of a left dermoid cyst and gallbladder procedure performed by Dr. Kelly. She spent 1 additional day in hospital and she was transitioned back to IV heparin and then Coumadin was started as well by her anticoagulation team. By 04/11/2017 she was doing well. Her hemoglobin was stable at 12.3 and she was not oozing from her incisions. She was given prescriptions for pain medication including Percocet and given discharge instructions and told to follow up in the office. At that time her anticoagulation was being followed by Dr. Rojo as an outpatient as well and patient was advised to contact with any other concerns.
== END 2017-04-11 12:01 | disposition home or self-care (01) | DRG 742 ==
LOC: C.OBG 09:13 → EDSTATUS 04-10 07:30
PROVIDERS: ADMIT Internal Medicine; ATTEND Obstetrics & Gynecology
PROC: 0UT14ZZ Resection of Left Ovary, Percutaneous Endoscopic Approach (ICD-10-PCS; principal; 2017-04-10 07:30)
PROC: 0UT64ZZ Resection of Left Fallopian Tube, Percutaneous Endoscopic Approach (ICD-10-PCS; principal; 2017-04-10 07:30)
PROC: 8E0UXY7 Examination of Female Reproductive System (ICD-10-PCS; principal; 2017-04-10 07:30)
PROC: 0FT44ZZ Resection of Gallbladder, Percutaneous Endoscopic Approach (ICD-10-PCS; 2017-04-10 07:30)
DX: D27.1 Benign neoplasm of left ovary (principal); D68.59 Other primary thrombophilia; K80.20 Calculus of gallbladder without cholecystitis without obstruction; E78.00 Pure hypercholesterolemia, unspecified; Z86.711 Personal history of pulmonary embolism; Z88.0 Allergy status to penicillin; Z88.1 Allergy status to other antibiotic agents; Z88.2 Allergy status to sulfonamides; Z88.8 Allergy status to other drugs, medicaments and biological substances; Z79.01 Long term (current) use of anticoagulants; Z79.899 Other long term (current) drug therapy; Z91.048 Other nonmedicinal substance allergy status

== ENCOUNTER 2017-04-13 06:59 | Emergency (ER) | payer OTHER ==
[~2017-04-13] VITALS: Ht 162.6 cm; Wt 59.1 kg
[~2017-04-13 06:59] MED LIST changes: +OXYC-57 PO
[2017-04-13 07:00] VITALS: Ht 162.6 cm; Wt 59.1 kg
[2017-04-13 08:09] LABS: BASO % 0.4 %; BASO ABS # 0.02 K/uL (0-0.2); EOS ABS # 0.05 K/uL (0-0.5); HEMATOCRIT 41.2 % (37-47); HEMOGLOBIN 13.9 g/dL (12.0-16.0); IG# 0.01 K/uL (0.00-0.02); LYMPH ABS # 1.64 K/uL (1.2-3.4); MEAN CELL VOLUME 90.4 fL (80-100); MEAN CORPUSCULAR HEMOGLOBIN 30.5 pg (25-34); MEAN CORPUSCULAR HGB CONC 33.7 g/dl (32-36); MONO % 9.3 %; MONO ABS # 0.45 K/uL (0.11-0.59); NEUT % 55.1 %; NEUT ABS # 2.65 K/uL (1.4-6.5); PLATELET COUNT 185 K/uL (130-400); RED CELL DISTRIBUTION WIDTH CV 11.6 % (11.5-14.5); RED CELL DISTRIBUTION WIDTH SD 37.9 fL (36.4-46.3); WHITE BLOOD COUNT 4.82 K/uL (4.8-10.8)
--- NOTE | 2017-04-13 08:21 | Medical Consult ---
Consultation Date of Consultation: Apr 13, 2017. Attending Physician: History of Present Illness 42 y/o female POD 3 lap butch/oophorectomy on Lovenox and coumadin (started yesterday) that began having bleeding from her umbilical incision this morning. Slowed now but awoke with her shirt bloody, called EMS. Has some bloating, hasn' t had a BM since surgery. Past Medical/Surgical History Medical Problems: (1) Back pain Status: Acute (2) Epigastric pain Status: Acute (3) Pulmonary embolism Status: Acute (4) Right upper quadrant abdominal pain Status: Acute (5) Right-sided chest pain Status: Acute (6) Stool guaiac positive Status: Acute (7) UTI (urinary tract infection) Status: Acute Family History Unobtainable family history due to adoption Social History Smoking Status: Never Smoker Drug Use: none Marital Status: Housing Status: lives with family Occupation Status: employed Allergies Coded Allergies: Red Dye (Unverified Allergy, Severe, HEAD TO TOE HIVES AND ITCHING, ) Apixaban (Verified Allergy, Intermediate, Hives/itching, 04/10/17) Penicillins (Verified Allergy, Mild, hives and itching, 03/30/17) Amoxicillin (Verified Allergy, Unknown, hives and itching, 03/30/17) Rivaroxaban (Verified Allergy, Unknown, hives and itching, 03/30/17) Sulfa Antibiotics (Verified Allergy, Unknown, tingling skin, 04/10/17) Uncoded Allergies: dye in various drugs (Allergy, Intermediate, HIVES, 01/12/17) Apixaban 5 mg tab; Rivaroxaban 15 mg tab; Coumadin 2 mg tab Physical Exam Date Time Temp Pulse Resp B/P (MAP) Pulse Ox O2 Delivery O2 Flow Rate FiO2 04/13/17 07:00 83 20 153/80 98 Room Air General Appearance: WD/WN, no apparent distress Abdomen/GI: soft, + pertinent finding (no active bleeding from umbilical incsion, some clot forming, other incisions benign) Laboratory Results Last 24 Hours Test 04/13/17 07:50 White Blood Count 4.82 K/uL Red Blood Count 4.56 M/uL Hemoglobin 13.9 g/dL Hematocrit 41.2 % Mean Corpuscular Volume 90.4 fL Mean Corpuscular Hemoglobin 30.5 pg Mean Corpuscular Hemoglobin Concent 33.7 g/dl Platelet Count 185 K/uL Mean Platelet Volume 9.0 fL Neutrophils (%) (Auto) 55.1 % Lymphocytes (%) (Auto) 34.0 % Monocytes (%) (Auto) 9.3 % Eosinophils (%) (Auto) 1.0 % Basophils (%) (Auto) 0.4 % Neutrophils # (Auto) 2.65 K/uL Lymphocytes # (Auto) 1.64 K/uL Monocytes # (Auto) 0.45 K/uL Eosinophils # (Auto) 0.05 K/uL Basophils # (Auto) 0.02 K/uL RDW Standard Deviation 37.9 fL RDW Coefficient of Variation 11.6 % Immature Granulocyte % (Auto) 0.2 % Immature Granulocyte # (Auto) 0.01 K/uL Assessment & Plan s/p laparoscopy, anticoagulated for factor V seen with Dr. Kelly would apply pressure dressing, abdominal binder H&H , INR pending but only had 1 dose of coumadin can start stool softener for constipation
[2017-04-13 08:28] LABS: INR 0.9 (0.9-1.1); PTT PATIENT 30.8 SECONDS (21.0-31.0)
--- NOTE | 2017-04-13 08:41 | EMERGENCY ROOM VISIT NOTE ---
History Report prepared by Sobia: Eddie Blair Under the Supervision of: Dr. Eldon James M.D. First contact with patient: 07:02 Stated Complaint: BLEEDING FROM OP SITE/ S/P LAP RACH ON MONDAY History of Present Illness The patient is a 42 year old female who presents to the Emergency Room by EMS with complaints of persistent post-operative bleeding beginning shortly prior to arrival. She had a laparoscopic cholecystectomy/left oophorectomy three days ago. She states that she woke up this morning and noticed blood on her shirt near the more midline of the two surgical sites on her abdomen. The patient is on Coumadin for PE occurring last year (due to protein C deficiency). She denies any other bruising or bleeding, other than some light vaginal spotting. She denies bloody stool, or hematuria. Pt denies LOC, headache, fevers, chills, diaphoresis, visual changes, neck pain, chest pain, breathing difficulties, nausea, vomiting, abdominal pain, back pain, melena, numbness, weakness, lymphadenopathy, rash, or other complaints. Source of History: patient Onset: Shortly prior to arrival Position: abdomen Quality: other (post-operative bleeding) Timing: other (persistent) Review of Systems See HPI for pertinent positives and negatives. A total of ten systems were reviewed and were otherwise negative. Past Medical & Surgical Medical Problems: (1) Acute pulmonary embolism (2) Gall bladder pain (3) longterm (current) use of anticoagulants (4) Ovarian cyst (5) Pre-op testing (6) Protein C deficiency Family History Unobtainable family history due to adoption Social History Smoking Status: Unknown if Ever Smoked Drug Use: none Marital Status: Housing Status: lives with family Occupation Status: employed Current/Historical Medications Scheduled Enoxaparin (Lovenox), 60 MG SQ Q12H Warfarin Sodium (Coumadin), 5 MG PO 6XWK Scheduled PRN Lorazepam (Ativan), 0.5 MG PO BID PRN for Anxiety Oxycodone/Acetaminophen 5MG/325MG (Percocet 5MG/325MG), 1 TAB PO Q4H PRN for Pain (pain scale 1-5) Allergies Coded Allergies: Red Dye (Unverified Allergy, Severe, HEAD TO TOE HIVES AND ITCHING, ) Apixaban (Verified Allergy, Intermediate, Hives/itching, 04/10/17) Penicillins (Verified Allergy, Mild, hives and itching, 03/30/17) Amoxicillin (Verified Allergy, Unknown, hives and itching, 03/30/17) Rivaroxaban (Verified Allergy, Unknown, hives and itching, 03/30/17) Sulfa Antibiotics (Verified Allergy, Unknown, tingling skin, 04/10/17) Uncoded Allergies: dye in various drugs (Allergy, Intermediate, HIVES, 01/12/17) Apixaban 5 mg tab; Rivaroxaban 15 mg tab; Coumadin 2 mg tab Physical Exam Vital Signs Date Time Temp Pulse Resp B/P (MAP) Pulse Ox O2 Delivery O2 Flow Rate FiO2 04/13/17 09:10 78 18 127/67 99 04/13/17 07:00 83 20 153/80 98 Room Air Physical Exam GENERAL: Awake, alert, well-appearing, in no distress HENT: Normocephalic, atraumatic. Oropharynx unremarkable. EYES: Normal conjunctiva. Sclera non-icteric. NECK: Supple. No nuchal rigidity. FROM. No masses. RESPIRATORY: Clear to auscultation. No wheezes. CARDIAC: Normal rate. Normal rhythm. No murmurs. No rubs. Extremities warm and well perfused. Pulses equal. No JVD. GI: Soft, non-distended. No rebound or guarding. No masses. Umbilical surgical incision with slight oozing present. No surrounding cellulitis. Mild LLQ tenderness to palpation. RECTAL: Deferred. MUSCULOSKELETAL: Atraumatic. Chest examination reveals no tenderness. The back is symmetrical on inspection without obvious abnormality. There is no CVA tenderness to palpation. No joint edema. LOWER EXTREMITIES: Calves are equal size bilaterally and non-tender. No edema. No discoloration. NEURO: Normal sensorium. No sensory or motor deficits noted. SKIN: No rash or jaundice noted. Medical Decision & Procedures Laboratory Results 04/13/17 07:50 Red Blood Count 4.56, Mean Corpuscular Volume 90.4, Mean Corpuscular Hemoglobin 30.5, Mean Corpuscular Hemoglobin Concent 33.7, Mean Platelet Volume 9.0, Neutrophils (%) (Auto) 55.1, Lymphocytes (%) (Auto) 34.0, Monocytes (%) (Auto) 9.3, Eosinophils (%) (Auto) 1.0, Basophils (%) (Auto) 0.4, Neutrophils # (Auto) 2.65, Lymphocytes # (Auto) 1.64, Monocytes # (Auto) 0.45, Eosinophils # (Auto) 0.05, Basophils # (Auto) 0.02 Test 04/13/17 07:50 White Blood Count 4.82 K/uL (4.8-10.8) Red Blood Count 4.56 M/uL (4.2-5.4) Hemoglobin 13.9 g/dL (12.0-16.0) Hematocrit 41.2 % (37-47) Mean Corpuscular Volume 90.4 fL (80-100) Mean Corpuscular Hemoglobin 30.5 pg (25-34) Mean Corpuscular Hemoglobin Concent 33.7 g/dl (32-36) Platelet Count 185 K/uL (130-400) Mean Platelet Volume 9.0 fL (7.4-10.4) Neutrophils (%) (Auto) 55.1 % Lymphocytes (%) (Auto) 34.0 % Monocytes (%) (Auto) 9.3 % Eosinophils (%) (Auto) 1.0 % Basophils (%) (Auto) 0.4 % Neutrophils # (Auto) 2.65 K/uL (1.4-6.5) Lymphocytes # (Auto) 1.64 K/uL (1.2-3.4) Monocytes # (Auto) 0.45 K/uL (0.11-0.59) Eosinophils # (Auto) 0.05 K/uL (0-0.5) Basophils # (Auto) 0.02 K/uL (0-0.2) RDW Standard Deviation 37.9 fL (36.4-46.3) RDW Coefficient of Variation 11.6 % (11.5-14.5) Immature Granulocyte % (Auto) 0.2 % Immature Granulocyte # (Auto) 0.01 K/uL (0.00-0.02) Prothrombin Time 9.8 SECONDS (9.0-12.0) Prothromb Time International Ratio 0.9 (0.9-1.1) Activated Partial Thromboplast Time 30.8 SECONDS (21.0-31.0) Partial Thromboplastin Ratio 1.2 Laboratory results reviewed by [facility] ED Course 0712: The patient was evaluated in room A10. A complete history and physical exam was performed. 0745: I updated the patient on her situation. She will be seen by Dr. Kelly. 0806: I spoke with Dr. Kelly at bedside. He recommends pressure dressing with an OPSITE cover. Discussed using a quick clot bandage and he believes this is reasonable. He also requested an abdominal binder. 0818: I placed a quick clot bandage and pressure dressing with an OPSITE cover over the patients surgical site. Patient will have an abdominal binder placed as well. 0845: I reevaluated the patient. Discussed results and discharge instructions: she verbalized understanding and agreement. The patient is ready for discharge. Medical Decision Triage Nursing notes reviewed. The patient's presentation and history were concerning for postoperative bleeding. Etiologies such as postoperative bleeding, seroma, coagulopathy, infection, As well as others were entertained. The patient was evaluated. Remainder of her incisions looked clean, dry, and intact. The umbilical incision site had some slow, gentle oozing. She had no other stigmata of coagulopathy or bleeding. She had no petechia. Her CBC and coags were unremarkable. She was seen by her surgeon in the emergency department. There is no easily identifiable source to the bleeding. He recommended a hemostatic dressing and follow-up in the office. I did place a quick clot gauze and OpSite to the umbilical incision site. An abdominal binder was placed as recommended by Dr. Kelly. Return instructions were outlined and the patient was discharged in stable condition. Hemostasis achieved. By the evaluation outlined above other emergent etiologies such as those listed in the differential, as well as others, were deemed relatively unlikely. The patient was educated about the findings as listed above. All questions were answered and the patient was pleased with the treatment. Return instructions were outlined and the patient was discharged in stable condition. The patient was referred to surgery for follow-up for a recheck of the current condition. Medication Reconcilliation Current Medication List: was personally reviewed by me Blood Pressure Screening Patient's blood pressure: Elevated blood pressure Blood pressure disposition: Referred to PCP Consults Time Called: [phone] Consulting Physician: Dr. Kelly - General Surgery Returned Call: [phone] Discussed the patient's case. Dr. Kelly will come evaluate the patient in the ED. Impression Primary Impression: Postoperative bleeding from incision Scribe Attestation The scribe's documentation has been prepared under my direction and personally reviewed by me in its entirety. I confirm that the note above accurately reflects all work, treatment, procedures, and medical decision making performed by me. Departure Information Dispostion Home / Self-Care Referrals Martín Allen M.D. (PCP) Forms HOME CARE DOCUMENTATION FORM, IMPORTANT VISIT INFORMATION Patient Instructions My [facility] Additional Instructions Leave the current dressing in place for 24 hours. Wet the gauze and then gently remove. Change once daily as directed by Dr. Kelly. Follow all of your other postoperative instructions given to by Dr. Kelly and Dr. Thomas. Continue current medications. Return to the ER immediately for spreading redness, fevers, pus-like drainage, severe pain, or as needed. Follow-up as scheduled.
[2017-04-13 09:10] VITALS: BP 127/67; PULSE 78; O2SAT 99
== END 2017-04-13 09:12 | disposition home or self-care (01) ==
LOC: EDBD 06:59 → C.EDB 07:01
DX: L76.22 Postprocedural hemorrhage of skin and subcutaneous tissue following other procedure (principal); Z79.01 Long term (current) use of anticoagulants; Z51.81 Encounter for therapeutic drug level monitoring; Z88.0 Allergy status to penicillin; Z88.8 Allergy status to other drugs, medicaments and biological substances

== ENCOUNTER 2017-04-14 05:47 | Emergency (ER) | payer OTHER ==
[~2017-04-14] VITALS: Ht 162.6 cm; Wt 56.6 kg
[~2017-04-14 05:47] MED LIST changes: -DICY20TA10 PO; -MISCCAP80 PO
[2017-04-14 05:49] VITALS: TEMP 36.6; Ht 162.6 cm; Wt 56.6 kg
--- NOTE | 2017-04-14 06:15 | EMERGENCY ROOM VISIT NOTE ---
History Report prepared by Sobia: Lara Steele Under the Supervision of: Dr. Les Farrar M.D. First contact with patient: 06:08 Chief Complaint: BLEEDING Stated Complaint: BLEEDING FROM POST SURGERY INCISION * ON BLOOD THI History of Present Illness The patient is a 42 year old female who presents to the Emergency Room with complaints of constant post-surgical bleeding of her abdomen beginning this morning. She states that 5 days ago she had a cholecystectomy and an ovary removal. The patient denies any syncopal episodes, abdominal pain, shortness of breath, or weakness. She also denies vaginal bleeding and blood in her stool. The patient states that she is on blood thinners. Source of History: patient Onset: this morning Position: abdomen Quality: other (post-surgical bleeding ) Timing: constant Associated Symptoms: No SOB, No abdominal pain, No weakness Note: also denies: vaginal bleeding, blood in stool, syncopal episodes Review of Systems See HPI for pertinent positives & negatives. A total of 10 systems reviewed and were otherwise negative. Past Medical & Surgical Medical Problems: (1) Acute pulmonary embolism (2) Gall bladder pain (3) [facility] (current) use of anticoagulants (4) Ovarian cyst (5) Pre-op testing (6) Protein C deficiency Family History Unobtainable family history due to adoption Social History Smoking Status: Never Smoker Drug Use: none Marital Status: Housing Status: lives with family Occupation Status: employed Current/Historical Medications Scheduled Enoxaparin (Lovenox), 60 MG SQ Q12H Warfarin Sodium (Coumadin), 5 MG PO 6XWK Scheduled PRN Lorazepam (Ativan), 0.5 MG PO BID PRN for Anxiety Oxycodone/Acetaminophen 5MG/325MG (Percocet 5MG/325MG), 1 TAB PO Q4H PRN for Pain (pain scale 1-5) Allergies Coded Allergies: Red Dye (Unverified Allergy, Severe, HEAD TO TOE HIVES AND ITCHING, ) Apixaban (Verified Allergy, Intermediate, Hives/itching, 04/10/17) Penicillins (Verified Allergy, Mild, hives and itching, 03/30/17) Amoxicillin (Verified Allergy, Unknown, hives and itching, 03/30/17) Rivaroxaban (Verified Allergy, Unknown, hives and itching, 03/30/17) Sulfa Antibiotics (Verified Allergy, Unknown, tingling skin, 04/10/17) Uncoded Allergies: dye in various drugs (Allergy, Intermediate, HIVES, 01/12/17) Apixaban 5 mg tab; Rivaroxaban 15 mg tab; Coumadin 2 mg tab Physical Exam Vital Signs Date Time Temp Pulse Resp B/P (MAP) Pulse Ox O2 Delivery O2 Flow Rate FiO2 04/14/17 05:49 36.6 117 20 131/92 99 Room Air Physical Exam GENERAL: Patient is anxious appearing and in mild distress. HEENT: No acute trauma, normocephalic atraumatic, mucous membranes moist, no nasal congestion, no scleral icterus. NECK: No stridor, no adenopathy, no meningismus, trachea is midline. LUNGS: No dyspnea. Clear to auscultation and equal bilaterally. No wheeze, no rhonchi. HEART: Regular rate and rhythm. No murmurs, rubs, gallops appreciated. ABDOMEN: Soft, nontender, bowel sounds positive, no masses appreciated, no peritonitis. Bruising of abdominal wall persistent with slow venous oozing from the umbilicus. No tenderness. EXTREMITIES: Normal motion all extremities, no cyanosis, no edema. NEUROLOGIC: Alert and oriented, no acute motor or sensory deficits, no focal weakness, cranial nerves grossly intact. SKIN: No rash, no jaundice, no diaphoresis. Medical Decision & Procedures Laboratory Results Test 04/14/17 08:15 ED Course 0605: The patient was evaluated in room B10. A complete history and physical exam was performed. 0630: Discussed the patient's case with Dr. Thomas. The patient will be evaluated for further treatment and disposition. 0647: The patient is comfortable with avoiding further labs. We are awaiting input from Dr. Kelly's PA. 0724: Dr. Thomas asked that we watch the patient. Medical Decision 42 yr old with protein c deficiency who just has oophorectomy and GB out a few days ago and returns for second day with some bleeding from umbilical port site. Slow venous oozing which has soaked several small bandages through to shirt but no evidence of significant hemorrhage. Mild tachy likely anxiety related. Not hypotensive and does not look nor act anemic. She does not have peritonitis on examination. She is stable and looks well. Site was injected with lido/epi by Dr Thomas and then cauterized with silver nitrate. Monitored without further bleeding. Discussed with Dr Rojo who suggested doing LMWH XA and INR and will add on HgB for completeness sake if getting these. She will be discharged home with plan to continue would care and monitor closely. Medication Reconcilliation Current Medication List: was personally reviewed by me Blood Pressure Screening Patient's blood pressure: Normal blood pressure Consults Time Called: 06 Consulting Physician: Dr. Thomas- Gynocology Returned Call: 0630 Discussed the patient's case. The patient will be evaluated for further treatment and disposition. Impression Primary Impression: Post-op bleeding Scribe Attestation The scribe's documentation has been prepared under my direction and personally reviewed by me in its entirety. I confirm that the note above accurately reflects all work, treatment, procedures, and medical decision making performed by me. Departure Information Dispostion Home / Self-Care Referrals ,Martín Archibald M.D. (PCP) Patient Instructions My [facility] Additional Instructions Follow instructions for wound care per your surgeons. Return if continued or heavy bleeding, abdominal pain, passing out, lightheadedness or other concerns. Discuss with your [facility] your labs that were checked earlier today.
[2017-04-14] MEDS ORDERED: SILVER NITR/POTASSIUM NITRATE APPLICATOR ONE ×2 (07:10→07:12)
[2017-04-14] MEDS ORDERED: LIDO/EPINEPHRINE/SOD BICARB 20 ML VIAL INFIL ONE (07:10)
[2017-04-14 09:00] VITALS: BP 121/60; PULSE 67; O2SAT 100
[2017-04-14 09:07] LABS: HEMATOCRIT 38.6 % (37-47); HEMOGLOBIN 13.2 g/dL (12.0-16.0)
[2017-04-14 09:26] LABS: INR 1.1 (0.9-1.1)
--- NOTE | 2017-05-02 13:07 | EDITING REQUIRED CODING QUERY ---
CODING QUERY To promote full compliance with coding requirements relating to patient care, provider participation is requested in all cases of invoice coder uncertainty. Please assist us with the question(s) below: Coding Question(s): Did Dr. Thomas come in and cauterize the umbilical port site, or was he consulted by phone only? Physician's Response(s): Patient was seen at bedside by Dr Thomas who cauterized umbilical port site. Thank you Cindy Spann
== END 2017-04-14 09:00 | disposition home or self-care (01) ==
LOC: C.EDB 05:48
DX: L76.22 Postprocedural hemorrhage of skin and subcutaneous tissue following other procedure (principal); D68.59 Other primary thrombophilia; Z79.01 Long term (current) use of anticoagulants; Z86.718 Personal history of other venous thrombosis and embolism; Z90.49 Acquired absence of other specified parts of digestive tract; Z90.721 Acquired absence of ovaries, unilateral; Z88.8 Allergy status to other drugs, medicaments and biological substances; Z91.048 Other nonmedicinal substance allergy status; Z88.0 Allergy status to penicillin; Z88.1 Allergy status to other antibiotic agents; Z88.2 Allergy status to sulfonamides

== ENCOUNTER → 2017-05-16 | Outpatient (CLI) | payer OTHER ==
[~2017-05-16] MED LIST changes: -ENOX60IN SQ
== END | disposition home or self-care (01) ==
LOC: C.LABSPEC 13:26
PROVIDERS: ATTEND Physician Assistant
DX: R10.9 Unspecified abdominal pain (principal)

== ENCOUNTER → 2017-05-17 | Outpatient (CLI) | payer OTHER ==
--- NOTE | 2017-05-17 08:12 | DIAGNOSTIC IMAGING REPORT ---
RENAL ULTRASOUND CLINICAL HISTORY: Flank pain. Hematuria. COMPARISON STUDY: CTA of the abdomen and pelvis December 26, 2016 and MRCP January 16, 2017. TECHNIQUE: Sonography of the kidneys and the urinary bladder was performed. FINDINGS: The right kidney measures 10.1 x 4.7 x 4.8 cm and the left measures 10.9 x 5.3 x 5.4 cm. There is no hydronephrosis. Renal echogenicity, size and cortical thickness are normal. No calculi or masses are identified. Both ureteral jets were identified. IMPRESSION: Normal renal ultrasound. No hydronephrosis. Electronically signed by: Tian Sher M.D. 05/17/2017 8:11 AM Dictated Date/Time: 05/17/2017 8:10 AM
== END | disposition home or self-care (01) ==
LOC: C.ULTR 07:49
PROVIDERS: ATTEND Physician Assistant
DX: R31.9 Hematuria, unspecified (principal); R10.9 Unspecified abdominal pain

== ENCOUNTER → 2017-06-05 | Outpatient (CLI) | payer OTHER ==
[2017-06-05 13:18] LABS: BASO ABS # 0.08 K/uL (0-0.2); EOS % 0.3 %; EOS ABS # 0.02 K/uL (0-0.5); HEMATOCRIT 40.1 % (37-47); HEMOGLOBIN 13.6 g/dL (12.0-16.0); IG# 0.03 K/uL (0.00-0.02); LYMPH % 20.7 %; LYMPH ABS # 1.62 K/uL (1.2-3.4); MEAN CELL VOLUME 89.3 fL (80-100); MEAN CORPUSCULAR HEMOGLOBIN 30.3 pg (25-34); MEAN CORPUSCULAR HGB CONC 33.9 g/dl (32-36); MEAN PLATELET VOLUME 9.1 fL (7.4-10.4); MONO % 5.8 %; MONO ABS # 0.45 K/uL (0.11-0.59); NEUT % 71.8 %; NEUT ABS # 5.62 K/uL (1.4-6.5); PLATELET COUNT 320 K/uL (130-400); RED CELL DISTRIBUTION WIDTH CV 12.7 % (11.5-14.5); RED CELL DISTRIBUTION WIDTH SD 40.6 fL (36.4-46.3); WHITE BLOOD COUNT 7.82 K/uL (4.8-10.8)
[2017-06-05 13:46] LABS: ALT/SGPT 24 U/L (12-78); AST/SGOT 18 U/L (15-37); BLOOD UREA NITROGEN 14 mg/dl (7-18); CALCIUM 9.1 mg/dl (8.5-10.1); CARBON DIOXIDE 28 mmol/L (21-32); CREATININE 0.74 mg/dl (0.60-1.20); GLUCOSE 95 mg/dl (70-99); POTASSIUM 3.7 mmol/L (3.5-5.1); SODIUM 137 mmol/L (136-145)
[2017-06-05 13:58] LABS: ALKALINE PHOSPHATASE 84 U/L (45-117); TOTAL PROTEIN 8.1 gm/dl (6.4-8.2)
== END | disposition home or self-care (01) ==
LOC: C.LAB1850 12:32
PROVIDERS: ATTEND Internal Medicine
DX: D64.9 Anemia, unspecified (principal)

== ENCOUNTER → 2017-09-11 | Outpatient (CLI) | payer OTHER ==
[~2017-09-11] MED LIST changes: +BIOT1CAP8; +COEN100C11; -OXYC-57 PO
--- NOTE | 2017-09-11 19:03 | DIAGNOSTIC IMAGING REPORT ---
TWO VIEW CHEST CLINICAL HISTORY: Thoracic outlet syndrome. FINDINGS: PA and lateral chest radiographs are compared to study dated 01/04/2016 and correlated with chest CT dated 12/08/2016. The cardiomediastinal silhouette is unremarkable. The lungs and pleural spaces are clear. There is no pneumothorax. The bony thorax appears intact. Cholecystectomy clips are noted in the right upper quadrant. IMPRESSION: No active disease in the chest. Electronically signed by: Samson Condon M.D. 09/11/2017 7:01 PM Dictated Date/Time: 09/11/2017 7:00 PM
== END | disposition home or self-care (01) ==
LOC: C.RAD 18:37
PROVIDERS: ATTEND Internal Medicine
DX: G54.0 Brachial plexus disorders (principal)

== ENCOUNTER → 2017-09-14 | Outpatient (CLI) | payer OTHER ==
--- NOTE | 2017-09-14 16:39 | DIAGNOSTIC IMAGING REPORT ---
THORACIC OUTLET ARTERIAL ULTRASOUND CLINICAL HISTORY: Right hand numbness. Possible thoracic outlet syndrome. COMPARISON STUDY: No previous studies for comparison. FINDINGS: Arterial waveforms of a finger in each hand was performed in the baseline position, with the arms in 90 degrees, 180 degrees, in the position, in the position with the head to the right, as well as the positioned with the head to the left. Waveforms were symmetric with normal upstrokes in all positions. There is no significant change in amplitude during the maneuvers. The right arterial waveforms in general demonstrates slightly diminished amplitudes as compared to the left. There are no findings in this examination to indicate thoracic outlet syndrome. IMPRESSION: No ultrasonographic evidence of arterial thoracic outlet syndrome . It should be noted that the amplitudes on the right where slightly diminished when compared the amplitude on the left. Electronically signed by: Angel Luis Cortez M.D. 09/14/2017 4:38 PM Dictated Date/Time: 09/14/2017 4:30 PM
--- NOTE | 2017-09-14 16:54 | DIAGNOSTIC IMAGING REPORT ---
ULTRASOUND RIGHT UPPER EXTREMITY VENOUS CLINICAL HISTORY: Thoracic outlet syndrome. COMPARISON STUDY: No priors. TECHNIQUE: Real-time, grayscale, and color Doppler sonography of the deep veins of the right upper extremity is performed. Compression and augmentation were utilized. FINDINGS: There is no sonographic evidence of deep venous thrombosis identified in the right upper extremity. The right internal jugular, axillary, and brachial veins are patent and normally compressible. Normal venous waveforms and augmentation are seen within the right subclavian vein. The basilic vein is clear. The cephalic vein is not well visualized and appears diminutive. The visualized radial and ulnar veins are patent. IMPRESSION: There is no sonographic evidence of deep venous thrombosis identified in the right upper extremity. Electronically signed by: Samson Condon M.D. 09/14/2017 4:53 PM Dictated Date/Time: 09/14/2017 4:51 PM
== END | disposition home or self-care (01) ==
LOC: C.ULTR 15:42
PROVIDERS: ATTEND Internal Medicine
DX: G54.0 Brachial plexus disorders (principal)